=== PATIENT | female | born 1940 | race Caucasian/White ===

== ENCOUNTER 2016-07-05 16:20 | Inpatient (IN) | payer MEDICARE ==
[2016-07-05 16:52] VITALS: BMI 31.8
--- NOTE | 2016-07-05 16:53 | CT ---
PROCEDURE: CT HEAD WITHOUT CONTRAST. HISTORY: Code Stroke COMPARISON: Comparison is made to the previous study dated 07/14/2015 TECHNIQUE: Axial computed tomography images were obtained through the head/brain without intravenous contrast. Radiation dose: Total exam DLP = 843.71 mGy-cm. FINDINGS: HEMORRHAGE: No intracranial hemorrhage. BRAIN: No mass effect or edema. Mild atrophy and moderate to extensive white matter changes are again seen. Chronic lacunar infarct is again noted at the left thalamus. VENTRICLES: Unremarkable. No hydrocephalus. CALVARIUM: Unremarkable. PARANASAL SINUSES: Unremarkable as visualized. No significant inflammatory changes. MASTOID AIR CELLS: Unremarkable as visualized. No inflammatory changes. OTHER FINDINGS: None. IMPRESSION: No evidence of acute intracranial hemorrhage. No significant interval change compared to the previous study 07/14/2015.
[2016-07-05 17:07] LABS: BASO # 0.1 K/uL (0.0-0.2); BASO % 0.6 % (0.0-2.0); EOS # 0.1 K/uL (0.0-0.7); HEMATOCRIT 37.3 % (34.0-47.0); LYMPH # 1.8 K/uL (1.0-4.3); LYMPH % 18.8 % (20.0-40.0); MEAN CELL VOLUME 85.4 fL (81.0-99.0); MEAN CORPUSCULAR HEMOGLOBIN 29.3 pg (27.0-31.0); MEAN CORPUSCULAR HGB CONC 34.3 g/dL (33.0-37.0); MEAN PLATELET VOLUME 9.3 fL (7.2-11.7); MONO # 0.8 K/uL (0.0-0.8); MONO % 8.7 % (0.0-10.0); RED CELL DISTRIBUTION WIDTH 15.2 % (11.5-14.5); WHITE BLOOD COUNT 9.5 K/uL (4.8-10.8)
--- NOTE | 2016-07-05 17:10 | RAD ---
HISTORY: code stroke COMPARISON: 07/14/2015 FINDINGS: LUNGS: Lung markings are accentuated. PLEURA: No significant pleural effusion identified, no pneumothorax apparent. CARDIOVASCULAR: There is mild cardiomegaly. Atherosclerotic aortic arch calcifications are present. OSSEOUS STRUCTURES: No significant abnormalities. VISUALIZED UPPER ABDOMEN: Normal. OTHER FINDINGS: None. IMPRESSION: Mild cardiomegaly and pulmonary venous congestion.
[2016-07-05 17:14] LABS: CHLORIDE 99 mmol/L (98-107)
[2016-07-05 17:15] LABS: POTASSIUM 4.1 mmol/L (3.6-5.2); SODIUM 140 mmol/L (132-148)
[2016-07-05 17:17] LABS: ALB/GLOB RATIO 1.5 (1.0-2.1); CARBON DIOXIDE 28 mmol/L (22-30); CHOLESTEROL 132 mg/dL (0-199); GFR AFRICAN-AMERICAN > 60
[2016-07-05 17:18] LABS: ALKALINE PHOSPHATASE 97 U/L (38-126); ALT/SGPT 32 U/L (9-52); AST/SGOT 20 U/L (14-36); BILIRUBIN,TOTAL 1.1 mg/dL (0.2-1.3); BLOOD UREA NITROGEN 15 mg/dL (7-17); CALCIUM 8.8 mg/dl (8.6-10.4); GLUCOSE,RANDOM 106 mg/dL (65-105)
[2016-07-05 17:21] LABS: INR 1.1
[2016-07-05 17:26] LABS: RBC URINE 1 /hpf (0-3); URINE BILIRUBIN NEGATIVE (NEGATIVE); URINE COLOR Straw (YELLOW); URINE GLUCOSE (UA) NORMAL (Normal); URINE KETONE NEGATIVE (NEGATIVE); URINE LEUKOCYTE ESTERASE NEG Leu/uL (Negative); URINE PROTEIN NEGATIVE (NEGATIVE); URINE UROBILINOGEN NORMAL mg/dL (0.2-1.0); WBC URINE < 1 /hpf (0-5)
[2016-07-05 17:33] LABS: URINE BLOOD NEGATIVE (NEGATIVE)
--- NOTE | 2016-07-05 18:19 | C.PDOC ---
History Of Present Illness 75 y/o female presents to the ED with altered mental status. History per family. Pt last seen well at 1500. Pt was then found on floor unable to speak or walk at 1545. History recent cardiac stent, HTN and COPD. Pt has been well the last few days. Time Seen by Provider: 07/05/16 16:34 Chief Complaint (Nursing): Altered Mental Status History Per: Family History/Exam Limitations: Clinical Condition Onset/Duration Of Symptoms: Hrs Onset Of Symptoms: <3 Hours Current Symptoms Are (Timing): Still Present Usual Baseline: Alert Oriented, Ambulatory Recent travel outside of the [place]: No Past Medical History Reviewed: Historical Data, Nursing Documentation, Vital Signs Vital Signs: Last Vital Signs Temp Pulse 68 07/05/16 18:19 Resp 17 07/05/16 18:19 BP 200/88 H 07/05/16 18:19 Pulse Ox 97 07/05/16 20:23 - Medical History PMH: Arthritis, Asthma, CAD, HTN, TIA Surgical History: Coronary Stent Family History: States: Unknown Family Hx - Social History Hx Alcohol Use: No Hx Substance Use: No Review Of Systems Review Of Systems: ROS cannot be obtained secondary to pt's inabilty to answer questions. Neurological: Positive for: Altered Mental Status Physical Exam - Physical Exam Appears: Non-toxic, In Acute Distress Skin: Warm, Dry, No Rash Head: Atraumatic, Normacephalic Nose: Normal Oral Mucosa: Moist Neck: Normal ROM, Supple Chest: Symmetrical Cardiovascular: Rhythm Regular, No Murmur Respiratory: Normal Breath Sounds, No Rales, No Rhonchi, No Wheezing Gastrointestinal/Abdominal: Soft, No Tenderness Extremity: Normal ROM, No Pedal Edema Neurological/Psych: Other (see NIH) ED Course And Treatment - Laboratory Results Result Diagrams: 07/05/16 17:02 07/05/16 17:02 ECG: Interpreted By Me ECG Rhythm: Sinus Rhythm ECG Interpretation: No Acute Changes Interpretation Of ECG: LVH, Rate From EC O2 Sat by Pulse Oximetry: 97 (on room air) Pulse Ox Interpretation: Normal - Radiology CXR: Interpreted by Me CXR Interpretation: Yes: No Acute Disease - CT Scan/US CT head Other Rad Studies (CT/US): Read By Radiologist, Radiology Report Reviewed CT/US Interpretation: Accession No. : [id number]. Patient Name / ID : CATHLEEN PAINTING / [id number]. Exam Date : 07/05/2016 16:45:07 ( Approved ). Study Comment : Sex / Age : F / 75Y. Creator : Jorge Alberto Shankar. Dictator : Jorge Alberto Shankar. Auto Emissions Technician : Director Sports : Jorge Alberto Shankar. Approver2 : Report Date : 07/05/2016 16:51:54. My Comment : . PROCEDURE: CT HEAD WITHOUT CONTRAST. HISTORY: Code Stroke. COMPARISON: Comparison is made to the previous study dated 07/14/2015. TECHNIQUE: Axial computed tomography images were obtained through the head/brain without intravenous contrast. Radiation dose: Total exam DLP = 843.71 mGy-cm. FINDINGS: HEMORRHAGE: No intracranial hemorrhage. BRAIN: No mass effect or edema. Mild atrophy and moderate to extensive white matter changes are again seen. Chronic lacunar infarct is again noted at the left thalamus. VENTRICLES: Unremarkable. No hydrocephalus. CALVARIUM: Unremarkable. PARANASAL SINUSES: Unremarkable as visualized. No significant inflammatory changes. MASTOID AIR CELLS: Unremarkable as visualized. No inflammatory changes. OTHER FINDINGS: None. IMPRESSION: No evidence of acute intracranial hemorrhage. No significant interval change compared to the previous study 07/14/2015. MRI brain Other Rad Studies (CT/US): Read By Radiologist, Radiology Report Reviewed CT/US Interpretation: Accession No. : [id number]. Patient Name / ID : CATHLEEN PAINTING / [id number]. Exam Date : 07/05/2016 18:36:00 ( Approved ). Study Comment : Sex / Age : F / 75Y. Creator : Cruz Rahman MD. Dictator : Cruz Rahman MD. Auto Emissions Technician : Director Sports : Cruz Rahman MD. Approver2 : Report Date : 07/05/2016 18:57:14. My Comment : . PROCEDURE: MRI BRAIN WITHOUT CONTRAST. HISTORY: r/o CVA - AMS right sided weakness. COMPARISON: None. TECHNIQUE: Multiplanar, multisequence MR images of the brain were obtained without intravenous contrast enhancement. FINDINGS: HEMORRHAGE: None. DWI: No evidence of an acute or early subacute infarction. BRAIN PARENCHYMA: No mass effect or edema. Severe chronic microvascular changes are seen in the periventricular white matter. There is a chronic lacunar infarct in the left thalamus. VENTRICLES: Unremarkable. No hydrocephalus. CRANIUM: Unremarkable. ORBITS: Grossly unremarkable. PARANASAL SINUSES/MASTOIDS: Clear. VASCULAR SYSTEM: Skull base flow voids intact. OTHER FINDINGS: None. IMPRESSION: No acute intracranial findings Progress Note: Code Stroke Called Critical Care Time - Critical Care Note Total Time (in mins): 35 Documented critical care: time excludes all time spent performing seperately billable procedures. NIHSS Stroke Scale - Date/Time Evaluation Performed Date Performed: 07/05/16 Time Performed: 16:00 - How Severe is the Stoke Level of Consciousness: 1=Drowsy LOC to Questions: 2=Neither correct LOC to commands: 2=Neither correct Best Gaze: 0=Normal Visual: 0=No visual loss Facial: 1=Minor asymmetry Motor Arm - Left: 2=Falls before 10 sec Motor Arm - Right: 3=No effort against gravity (falls immediately) Motor Leg - Left: 2=Falls before 5 sec Motor Leg - Right: 4=No movement Limb Ataxia: 2=Present both Sensory: 0=Normal Best Language: 3=Mute Dysarthia: 2=Severe, near unintelligible or worse Extinction & Inattention (Neglect): 1=Partial neglect (mild judi-attention) Score: 25 Severity Of Stroke: 21-42= Severe Stroke rTPA Inclusion/Exclusion - Refusal of Treatment Patient Refused Treatment: No - Inclusion Criteria for Altepase Patient is 18 years or Older: Yes Clinical DX Ischemic Stroke Cause Neurological Deficit: Yes Time of Onset Established Less Than 270 Mins Before TX Begin: Yes Risk/Benefit Discussed With Patient/Family Member Present: No - Warning to TPA With Conditions Condition: Rapid Improvement (Pt now moving right side, now knows family) Medical Decision Making Medical Decision Making: Plan: labs, CT head, EKG, CXR, MRI brain, ativan, IV fluids, Ua CT no acute bleed Family at bedside reports pt is improving, now recognizing them, has moved the right side Test results and plan discussed with family Case discussed with dr See, in view of the improvement / high nih score TPA not indicated. MRI ordered - Case discussed with and admitted by dr Franci Burns covering dr Wilver Burns Pt accepted to ICU by dr Garcia Disposition - Disposition Disposition: HOSPITALIZED Disposition Time: 18:00 Condition: SERIOUS - Clinical Impression Clinical Impression: CVA (cerebral vascular accident) - Scribe Statement The provider has reviewed the documentation as recorded by the Scribe Billy Chowdhury Provider Attestation: All medical record entries made by the Scribe were at my direction and personally dictated by me. I have reviewed the chart and agree that the record accurately reflects my personal performance of the history, physical exam, medical decision making, and the department course for this patient. I have also personally directed, reviewed, and agree with the discharge instructions and disposition. Decision To Admit - Pt Status Changed To: Hospital Disposition Of: Inpatient - Admit Certification Admit to Inpatient:: After my assessment, the patient will require hospitalization for at least two midnights. This is because of the severity of symptoms shown, intensity of services needed, and/or the medical risk in this patient being treated as an outpatient. - InPatient: Physician Admission Certification:: see note - . Bed Request Type: ICU Admitting Physician: Acacia Burns Patient Diagnosis: CVA (cerebral vascular accident)
--- NOTE | 2016-07-05 18:58 | MRI ---
PROCEDURE: MRI BRAIN WITHOUT CONTRAST HISTORY: r/o CVA - AMS right sided weakness COMPARISON: None. TECHNIQUE: Multiplanar, multisequence MR images of the brain were obtained without intravenous contrast enhancement. FINDINGS: HEMORRHAGE: None DWI: No evidence of an acute or early subacute infarction. BRAIN PARENCHYMA: No mass effect or edema. Severe chronic microvascular changes are seen in the periventricular white matter. There is a chronic lacunar infarct in the left thalamus VENTRICLES: Unremarkable. No hydrocephalus. CRANIUM: Unremarkable. ORBITS: Grossly unremarkable. PARANASAL SINUSES/MASTOIDS: Clear VASCULAR SYSTEM: Skull base flow voids intact. OTHER FINDINGS: None. IMPRESSION: No acute intracranial findings
[2016-07-05] MEDS ORDERED: Albuterol 0.042% Inhal Sol (1.25 mg/3 mL) UD INH PRN (19:54)
[2016-07-05] MEDS ORDERED: MethylPREDNISolone 40 mg Vial IVP ONE (20:00)
--- NOTE | 2016-07-05 20:04 | CP.PCM.CON ---
History of Present Illness - History of Present Illness History of Present Illness: 75 YOF with h/o heavy smoking since she was 11 year old and h/o CAD and HTN, found on the floor at home and was unable to talk. She was seen by her daughter 5 minutes earlier and she was fine. Pt was unable to get up initially but later was able to stand up and walked with support but still not able to talk. No CP, she was awake, she was brought to ER, and was evaluated by Neurologist and apparently had no focal signs while in ER and her speech was also improving, so deemed not a candidate for TPA. Now I;m seeing the pt at 8 pm in ICU and the event happened at 3 pm. Pt is awake, alert, able to talk but not clearly. There is no facial droop but now has slight weakness of right arm. She also has wheezing and high BP 190/70 Review of Systems - Review of Systems Systems not reviewed;Unavailable: Unstable Vital Signs - Constitutional Constitutional: As Per HPI - EENT Eyes: As Per HPI Nose/Mouth/Throat: As Per HPI - Breasts Breasts: As Per HPI - Cardiovascular Cardiovascular: As Per HPI - Respiratory Respiratory: Wheezing - Gastrointestinal Gastrointestinal: As Per HPI Past Patient History - Past Medical History & Family History Past Medical History?: Yes - Past Social History Smoking Status: Heavy Smoker > 10 Cigarettes Daily - CARDIAC Hx Hypertension: Yes - PULMONARY Hx Asthma: Yes - NEUROLOGICAL Hx Transient Ischemic Attacks (TIA): Yes - HEENT Hx HEENT Problems: Yes Hx Cataracts: Yes (both eyes) - RENAL Hx Chronic Kidney Disease: No - ENDOCRINE/METABOLIC Hx Endocrine Disorders: Yes Hx Diabetes Mellitus Type 2: Yes - HEMATOLOGICAL/ONCOLOGICAL Hx Blood Disorders: No - INTEGUMENTARY Hx Dermatological Problems: No - MUSCULOSKELETAL/RHEUMATOLOGICAL Hx Arthritis: Yes - GASTROINTESTINAL Hx Gastrointestinal Disorders: Yes Hx Constipation: Yes - GENITOURINARY/GYNECOLOGICAL Hx Genitourinary Disorders: No - PSYCHIATRIC Hx Substance Use: No - SURGICAL HISTORY Hx Coronary Stent: Yes - ANESTHESIA Hx Anesthesia: Yes Hx Anesthesia Reactions: No Hx Malignant Hyperthermia: No Meds Allergies/Adverse Reactions: Allergies Allergy/AdvReac Type Severity Reaction Status Date / Time No Known Allergies Allergy Verified 07/14/15 14:51 - Medications Medications: Current Medications Albuterol Sulfate (Albuterol 0.042% Inhal Jennifer (1.25mg/3ml) Ud) 1.25 mg INH RQ4 PRN PRN Reason: Wheezing Hydralazine HCl (Apresoline) 10 mg IVP Q4H PRN PRN Reason: Systolic Blood Pressure Methylprednisolone (Solu-Medrol) 40 mg IVP ONCE ONE Stop: 07/05/16 20:01 Physical Exam - Head Exam Head Exam: ATRAUMATIC - Eye Exam Eye Exam: Normal appearance - Neck Exam Neck exam: Positive for: Normal Inspection - Respiratory Exam Respiratory Exam: NORMAL BREATHING PATTERN - Cardiovascular Exam Cardiovascular Exam: REGULAR RHYTHM - Exam Exam: NORMAL INSPECTION - Extremities Exam Extremities exam: Positive for: normal inspection - Neurological Exam Neurological exam: Alert, CN II-XII Intact, Motor Sensory Deficit - Expanded Neurological Exam Expanded Neuro motor strength exam: Left Upper Extremity: 5, Right Upper Extremity: 4, Left Lower Extremity: 5, Right Lower Extremity: 5 Results - Vital Signs Recent Vital Signs: Last Vital Signs Temp Pulse 68 07/05/16 18:19 Resp 17 07/05/16 18:19 BP 200/88 H 07/05/16 18:19 Pulse Ox 97 07/05/16 19:36 - Labs Result Diagrams: 07/05/16 17:02 07/05/16 17:02 Assessment & Plan - Assessment and Plan (Free Text) Assessment: Acute ischemic CVA: MRI head was negative Accelerated HTN: due to stroke COPD exacerbation CAD: h/o stent placement 2006 Plan: was evaluated by neurologist, was not a candidate for TPA No need to control< 190 at the moment, will bring it down gradually, PRN hydralazine IV, will start PO meds if passed swallow evaluation Methyprednison 40 mg IV now and q 6 hour Albuterol inhalor q4 hour PRN DVT propylaxis, lovenox 40 mg s/q daily neurology f/u
--- NOTE | 2016-07-05 20:34 | CP.PCM.HP ---
Past Patient History - Past Medical History & Family History Past Medical History?: Yes - Past Social History Smoking Status: Heavy Smoker > 10 Cigarettes Daily - CARDIAC Hx Hypertension: Yes - PULMONARY Hx Asthma: Yes - NEUROLOGICAL Hx Transient Ischemic Attacks (TIA): Yes - HEENT Hx HEENT Problems: Yes Hx Cataracts: Yes (both eyes) - RENAL Hx Chronic Kidney Disease: No - ENDOCRINE/METABOLIC Hx Endocrine Disorders: Yes Hx Diabetes Mellitus Type 2: Yes - HEMATOLOGICAL/ONCOLOGICAL Hx Blood Disorders: No - INTEGUMENTARY Hx Dermatological Problems: No - MUSCULOSKELETAL/RHEUMATOLOGICAL Hx Arthritis: Yes - GASTROINTESTINAL Hx Gastrointestinal Disorders: Yes Hx Constipation: Yes - GENITOURINARY/GYNECOLOGICAL Hx Genitourinary Disorders: No - PSYCHIATRIC Hx Substance Use: No - SURGICAL HISTORY Hx Coronary Stent: Yes - ANESTHESIA Hx Anesthesia: Yes Hx Anesthesia Reactions: No Hx Malignant Hyperthermia: No Meds Allergies/Adverse Reactions: Allergies Allergy/AdvReac Type Severity Reaction Status Date / Time No Known Allergies Allergy Verified 07/14/15 14:51 Results - Vital Signs Recent Vital Signs: Last Vital Signs Temp Pulse 68 07/05/16 18:19 Resp 17 07/05/16 18:19 BP 200/88 H 07/05/16 18:19 Pulse Ox 97 07/05/16 20:28 - Labs Result Diagrams: 07/05/16 17:02 07/05/16 17:02
[2016-07-05 22:06] LABS: FREE T4 1.37 ng/dL (0.78-2.19)
[2016-07-05 22:20] LABS: THYROID STIMULATING HORMONE 1.23 mIU/L (0.46-4.68)
[2016-07-06 06:19] LABS: BASO % 0.1 % (0.0-2.0); HEMATOCRIT 37.2 % (34.0-47.0); LYMPH # 0.7 K/uL (1.0-4.3); LYMPH % 6.5 % (20.0-40.0); MEAN CELL VOLUME 85.5 fL (81.0-99.0); MEAN CORPUSCULAR HEMOGLOBIN 29.4 pg (27.0-31.0); MEAN CORPUSCULAR HGB CONC 34.4 g/dL (33.0-37.0); MEAN PLATELET VOLUME 9.7 fL (7.2-11.7); MONO # 0.2 K/uL (0.0-0.8); MONO % 1.9 % (0.0-10.0); PLATELET COUNT 213 K/uL (130-400); RED CELL DISTRIBUTION WIDTH 15.2 % (11.5-14.5); WHITE BLOOD COUNT 10.5 K/uL (4.8-10.8)
[2016-07-06 06:30] LABS: CHLORIDE 99 mmol/L (98-107); POTASSIUM 3.8 mmol/L (3.6-5.2); SODIUM 140 mmol/L (132-148)
[2016-07-06 06:32] LABS: ALB/GLOB RATIO 1.3 (1.0-2.1); ALKALINE PHOSPHATASE 86 U/L (38-126); ALT/SGPT 24 U/L (9-52); AST/SGOT 16 U/L (14-36); BILIRUBIN,TOTAL 1.1 mg/dL (0.2-1.3); BLOOD UREA NITROGEN 13 mg/dL (7-17); CARBON DIOXIDE 24 mmol/L (22-30); GFR AFRICAN-AMERICAN > 60; GLUCOSE,RANDOM 153 mg/dL (65-105); PHOSPHOROUS 3.7 mg/dL (2.5-4.5); TOTAL PROTEIN 6.7 g/dL (6.3-8.3)
[2016-07-06 06:33] LABS: CALCIUM 8.5 mg/dl (8.6-10.4); MAGNESIUM 1.8 mg/dL (1.6-2.3)
[2016-07-06 06:35] LABS: INR 1.1
[2016-07-06 09:04] LABS: LARGE PLATELETS PRESENT; NEUTROPHIL 89 % (50-75); REACTIVE LYMPHOCYTES 1 % (0-0); TOTAL CELLS COUNTED 100
[2016-07-06 09:22] LABS: ERYTHROCYTE SEDIMENTATION RATE 43 mm/hr (0-20)
[2016-07-06] MEDS ORDERED: Pantoprazole 40 mg EC Tab PO SCH (10:00)
--- NOTE | 2016-07-06 11:33 | CON ---
DATE: 07/06/2016 ROOM: ICU, bed 16. REASON FOR THE CONSULTATION: Right-sided weakness. CHIEF COMPLAINT: The patient was brought to [facility] by her daughter with a history of unable to get her up. This episode lasted for a few minutes and after that, she got up on her own and she had a problem with speech impairment. At the time the patient was brought into the [facility], she had a right-sided weakness. The symptoms were improved. From neurological point of view, I was called in to evaluate her for further management. HISTORY OF PRESENTING ILLNESS: The patient is a 75-year-old, right-handed, female brought into [facility] with a history of daughter witnessed that she could not able to get out of her bed. A few minutes later, she could able to get up. However, she could not able to walk. At that time in the ER, she was found to have a right-sided weakness with speech impairment. As per the ER physician, her symptoms got somewhat improved the time of admission. Considering that presentation, patient was out of tPA window treatment. The patient did have a CT of the head and MRI of the brain also done at the same time. PAST MEDICAL HISTORY: COPD, hypertension, history of TIA and coronary artery disease. She had a coronary artery stent placement. REVIEW OF SYSTEMS: As per H and P. PERSONAL HISTORY: Denies smoking or alcohol use. MEDICATIONS: At home, hydralazine, lorazepam, methylprednisolone. PHYSICAL EXAMINATION: VITAL SIGNS: Blood pressure 148/64, mean arterial pressure 87, respiratory rate 16, temperature afebrile. NECK: Supple. No carotid bruit. HEART SOUNDS: Tachycardia. EXTREMITIES: Right leg externally rotated. NEUROLOGIC EXAMINATION: MENTAL STATUS: She had a visual fixation on her left side. Right side still denying to look at me when I stand on the right side. Speech globally aphasic. CRANIAL NERVES: Decreased visual threat on right side. Pupils reactive to light. Extraocular movement, roving conjugate gaze. Facial asymmetry noted presenting as flattening of the nasolabial fold. Hearing seems to be intact. She could able to copy the sign. Gag, inability to evaluate. MOTOR: She could move her left side. Right side is 0/5. Deep tendon reflexes absent. Plantars are upgoing on her right side; left side was downgoing. SENSORY: Responds to pain symmetrically on both sides. GAIT AND COORDINATION: Deferred at this time. CONCLUSION: Upon reviewing her history and neurological examination, the patient is presenting with left hemispheric dysfunction manifesting as right homonymous hemianopsia, right hemiplegia, globally aphasia. All suggestive of dominant hemispheric dysfunction. This is probably ischemic versus embolic phenomena. However, other possible causes could be postictal phase. WORKUP: CT of the head, no acute pathology. MRI of the brain, reviewed by me, no acute pathology except old left thalamic infarct and periventricular ischemic changes consistent with small vessel disease. EKG, normal sinus rhythm. BLOOD WORKUP: WBCs 10, hemoglobin 12.8, hematocrit 37.2, . PT 12.6, INR 1.1, PTT 28. Sodium 140, potassium 3.8, chloride 99, bicarbonate 24, BUN 13, creatinine 0.6, GFR more than 60, glucose 153. Hemoglobin A1c 6.4. Triglyceride 137, cholesterol 125, LDL 55, HDL 44. TSH 1.23. Prolactin 52.3. RECOMMENDATIONS: 1. Repeat CT of the head today to rule out any other further ischemic process. 2. EEG to rule out paroxysmal activities or focal slowing. 3. Continue antiplatelets with RODNEY inhibitors. The patient should be kept DVT prophylaxis. The patient's condition has been discussed with the resident. The patient will be followed closely with you. Fan See MD cc: [id number] TT: 07/06/2016 11:32:38 Confirmation # [id number] Dictation # [id number] [id number]
[2016-07-06] MEDS ORDERED: Lactated Ringer's 1,000 ML IV SCH (12:30)
[2016-07-06] MEDS: Metoprolol 1 mg/ml Inj IVP SCH ×2 (12:49→18:06)
--- NOTE | 2016-07-06 15:14 | VASCLAB ---
PROCEDURE: HISTORY: STENOSIS COMPARISON: None available. TECHNIQUE: Grayscale and duplex Doppler evaluation of the cervical carotid and vertebral arteries were performed. The common carotid, carotid bifurcations and cervical Internal Carotid Artery (ICA) and proximal External Carotid Artery (ECA) were evaluated. The vertebral arteries were evaluated for gross patency and flow direction. Report prepared by UNIQUE Bullock FINDINGS: RIGHT CAROTID ARTERIES: 1. Common Carotid Artery: No significant focal plaque formation of the right common carotid artery. Maximum Peak Systolic velocity: 98 cm/sec: End-diastolic velocity 17 cm/sec. 2. Carotid Bifurcation: Calcific plaque formation. Maximum Peak Systolic velocity: 78 cm/sec: End-diastolic velocity 14 cm/sec. 3. Internal Carotid Artery: Plaque description: Calcific 3.1. Proximal Segment: Peak systolic velocity 151 cm/sec: End-diastolic velocity 21 cm/sec - % stenosis 50-60% 3.2. Middle Segment: Peak systolic velocity 106 cm/sec: End-diastolic velocity 12 cm/sec - % stenosis 0-15% 3.3. Distal Segment: Unable to obtain 4. External Carotid Artery: Calcific plaque formation. Peak systolic velocity 159 cm/sec 5. ICA/CCA Ratio: 1.5 LEFT CAROTID ARTERIES: 1. Common Carotid Artery: No significant focal plaque formation of the left common carotid artery. Maximum Peak Systolic velocity: 85 cm/sec: End-diastolic velocity 10 cm/sec. 2. Carotid Bifurcation: Calcific plaque formation. Maximum Peak Systolic velocity: 88 cm/sec: End-diastolic velocity 11 cm/sec. 3. Internal Carotid Artery: Plaque description: Calcific 3.1. Proximal Segment: Peak systolic velocity 87 cm/sec: End-diastolic velocity 22 cm/sec - % stenosis 0-15% 3.2. Middle Segment: Peak systolic velocity 108 cm/sec: End-diastolic velocity 33 cm/sec - % stenosis 0-15% 3.3. Distal Segment: Peak systolic velocity 95 cm/sec: End-diastolic velocity 25 cm/sec - % stenosis 0-15% 4. External Carotid Artery: Calcific plaque formation. Peak systolic velocity 104 cm/sec 5. ICA/CCA Ratio: 1.4 VERTEBRAL ARTERIES: 1. Right Vertebral Artery: unable to visualize 2. Left Vertebral Artery: unable to visualize OTHER FINDINGS: 1. Right Brachial Blood pressure: 150 mmHg. 2. Left Brachial Blood pressure: 160 mmHg. IMPRESSION: RIGHT: Elevated velocity at the right proximal ICA, suggesting 50-60% stenosis. High velocity noted of the right proximal ECA. LEFT: Duplex scan does not suggest hemodynamically significant stenosis of the left extracranial carotid arteries. Technically very difficult exam due to patient constant movement and head position.
--- NOTE | 2016-07-06 16:14 | CP.CCUPN ---
<Sandra Magdaleno - Last Filed: 07/06/16 17:09> CCU Subjective - Physician Review Subjective (Free Text): 07/06/16 16:12 Patient seen and examined at bedside. Patient is globally aphasic speech. She actively raises her left arm and leg and is able to sustain against gravity. Left side 0/5 strength. Patient will not look to the right side. Responsive to pain bilaterally and symmetrically. Follows commands. Critical Care Time Spent (in minutes): 90 CCU Objective - Vital Signs / Intake & Output Vital Signs (Last 4 hours): Vital Signs Pulse Resp BP Pulse Ox 07/06/16 15:00 62 20 164/57 H 98 07/06/16 14:00 58 L 20 151/53 H 99 07/06/16 13:00 60 19 162/63 H 99 Intake and Output (Last 8hrs): Intake & Output 07/06/16 07/06/16 07/06/16 06:59 14:59 22:59 Intake Total 100 400 100 Output Total 750 305 35 Balance -650 95 65 Weight 176 lb 12.8 oz Intake: Intake, IV Amount 400 100 Left Hand 400 Lt AC #20 100 Oral 100 Output: Urine 750 305 35 Urethral (Almodovar) 750 305 35 - Physical Exam Head: Positive for: Atraumatic, Normocephalic Pupils: Positive for: PERRL Extroacular Muscles: Positive for: Other (gaze only to left side ) Conjunctiva: Positive for: Normal Mouth: Positive for: Moist Mucous Membranes Neck: Negative for: Bruit Respiratory/Chest: Positive for: Wheezes. Negative for: Respiratory Distress, Rales, Rhonchi Cardiovascular: Positive for: Normal S1, S2. Negative for: Tachycardic Abdomen: Positive for: Normal Bowel Sounds. Negative for: Tenderness, Distention Upper Extremity: Positive for: Normal Inspection, Other Lower Extremity: Negative for: Edema Neurological: Positive for: Other (Gaze to left side, corneal reflex intact, 5/ 5 strength to LUE and LLE, 0/5 stength to RUE and RLE, pupils reactive to light ) Psychiatric: Positive for: Alert - Medications Active Medications: Active Medications Generic Name Dose Route Start Last Admin Trade Name Freq PRN Reason Stop Dose Admin Albuterol Sulfate 1.25 mg 07/05/16 19:54 07/05/16 20:07 Albuterol 0.042% Inhal Jennifer (1.25mg/3ml) Ud INH 1.25 mg RQ4 PRN Administration Wheezing Aspirin 300 mg 07/06/16 12:30 07/06/16 13:05 Aspirin Supp ND 300 mg DAILY YASMIN Administration Hydralazine HCl 10 mg 07/05/16 19:39 07/06/16 01:53 Apresoline IVP 10 mg Q4H PRN Administration Systolic Blood Pressure Lactated Ringer's 1,000 mls @ 100 mls/hr 07/06/16 12:30 07/06/16 12:47 Lactated Ringer's IV 100 mls/hr .Q10H YASMIN Administration Metoprolol Tartrate 2.5 mg 07/06/16 12:15 07/06/16 12:49 Lopressor IVP 2.5 mg Q6H YASMIN Administration Pantoprazole Sodium 40 mg 07/07/16 10:00 Protonix Inj IVP DAILY YASMIN Rosuvastatin Calcium 20 mg 07/05/16 22:00 07/05/16 22:10 Crestor PO 20 mg HS YASMIN Administration - Patient Studies Lab Studies: Microbiology Studies 07/05/16 19:15 MRSA Culture (Admit) - Final Nose MRSA NOT DETECTED Lab Studies 07/06/16 07/06/16 07/06/16 Range/Units 12:01 06:11 06:10 WBC 10.5 (4.8-10.8) K/uL RBC 4.35 (3.80-5.20) Mil/uL Hgb 12.8 (11.0-16.0) g/dL Hct 37.2 (34.0-47.0) % MCV 85.5 (81.0-99.0) fL MCH 29.4 (27.0-31.0) pg MCHC 34.4 (33.0-37.0) g/dL RDW 15.2 H (11.5-14.5) % Plt Count 213 (130-400) K/uL MPV 9.7 (7.2-11.7) fL Neut % (Auto) 91.5 H (50.0-75.0) % Lymph % (Auto) 6.5 L (20.0-40.0) % [place] % (Auto) 1.9 (0.0-10.0) % Eos % (Auto) 0.0 (0.0-4.0) % Baso % (Auto) 0.1 (0.0-2.0) % Neut # 9.6 H (1.8-7.0) K/uL Lymph # 0.7 L (1.0-4.3) K/uL [place] # 0.2 (0.0-0.8) K/uL Eos # 0.0 (0.0-0.7) K/uL Baso # 0.0 (0.0-0.2) K/uL Neutrophils % (Manual) 89 H (50-75) % Lymphocytes % (Manual) 8 L (20-40) % Reactive Lymphs % 1 H (0-0) % Monocytes % (Manual) 2 (0-10) % Platelet Estimate Normal (NORMAL) Large Platelets Present RBC Morphology Normal ESR 43 H (0-20) mm/hr PT 12.6 H (9.7-12.2) SECONDS INR 1.1 APTT 28 (21-34) SECONDS Sodium 140 (132-148) mmol/L Potassium 3.8 (3.6-5.2) mmol/L Chloride 99 (98-107) mmol/L Carbon Dioxide 24 (22-30) mmol/L Anion Gap 20 (10-20) BUN 13 (7-17) mg/dL Creatinine 0.6 L (0.7-1.2) MG/DL Est GFR ( Amer) > 60 Est GFR (Non-Af Amer) > 60 POC Glucose (mg/dL) 118 H (65-110) mg/dL Random Glucose 153 H (65-105) mg/dL Calcium 8.5 L (8.6-10.4) mg/dl Phosphorus 3.7 (2.5-4.5) mg/dL Magnesium 1.8 (1.6-2.3) mg/dL Total Bilirubin 1.1 (0.2-1.3) mg/dL AST 16 (14-36) U/L ALT 24 (9-52) U/L Alkaline Phosphatase 86 (38-126) U/L Total Protein 6.7 (6.3-8.3) g/dL Albumin 3.8 (3.5-5.0) g/dL Globulin 2.9 (2.2-3.9) gm/dL Albumin/Globulin Ratio 1.3 (1.0-2.1) Triglycerides (0-149) mg/dL Cholesterol (0-199) mg/dL LDL Cholesterol Direct (0-129) mg/dL HDL Cholesterol (30-70) mg/dL Free T4 (0.78-2.19) ng/dL TSH 3rd Generation (0.46-4.68) mIU/L Prolactin (3.0-18.9) ng/mL 07/05/16 07/05/16 Range/Units 22:03 21:29 WBC (4.8-10.8) K/uL RBC (3.80-5.20) Mil/uL Hgb (11.0-16.0) g/dL Hct (34.0-47.0) % MCV (81.0-99.0) fL MCH (27.0-31.0) pg MCHC (33.0-37.0) g/dL RDW (11.5-14.5) % Plt Count (130-400) K/uL MPV (7.2-11.7) fL Neut % (Auto) (50.0-75.0) % Lymph % (Auto) (20.0-40.0) % [place] % (Auto) (0.0-10.0) % Eos % (Auto) (0.0-4.0) % Baso % (Auto) (0.0-2.0) % Neut # (1.8-7.0) K/uL Lymph # (1.0-4.3) K/uL [place] # (0.0-0.8) K/uL Eos # (0.0-0.7) K/uL Baso # (0.0-0.2) K/uL Neutrophils % (Manual) (50-75) % Lymphocytes % (Manual) (20-40) % Reactive Lymphs % (0-0) % Monocytes % (Manual) (0-10) % Platelet Estimate (NORMAL) Large Platelets RBC Morphology ESR (0-20) mm/hr PT (9.7-12.2) SECONDS INR APTT (21-34) SECONDS Sodium (132-148) mmol/L Potassium (3.6-5.2) mmol/L Chloride (98-107) mmol/L Carbon Dioxide (22-30) mmol/L Anion Gap (10-20) BUN (7-17) mg/dL Creatinine (0.7-1.2) MG/DL Est GFR ( Amer) Est GFR (Non-Af Amer) POC Glucose (mg/dL) 121 H (65-110) mg/dL Random Glucose (65-105) mg/dL Calcium (8.6-10.4) mg/dl Phosphorus (2.5-4.5) mg/dL Magnesium (1.6-2.3) mg/dL Total Bilirubin (0.2-1.3) mg/dL AST (14-36) U/L ALT (9-52) U/L Alkaline Phosphatase (38-126) U/L Total Protein (6.3-8.3) g/dL Albumin (3.5-5.0) g/dL Globulin (2.2-3.9) gm/dL Albumin/Globulin Ratio (1.0-2.1) Triglycerides 137 (0-149) mg/dL Cholesterol 125 (0-199) mg/dL LDL Cholesterol Direct 55 (0-129) mg/dL HDL Cholesterol 44 (30-70) mg/dL Free T4 1.37 (0.78-2.19) ng/dL TSH 3rd Generation 1.23 (0.46-4.68) mIU/L Prolactin 52.3 H (3.0-18.9) ng/mL Laboratory Results - last 24 hr 07/05/16 07/05/16 07/06/16 21:29 22:03 06:10 WBC RBC Hgb Hct MCV MCH MCHC RDW Plt Count MPV Neut % (Auto) Lymph % (Auto) [place] % (Auto) Eos % (Auto) Baso % (Auto) Neut # Lymph # [place] # Eos # Baso # Neutrophils % (Manual) Lymphocytes % (Manual) Reactive Lymphs % Monocytes % (Manual) Platelet Estimate Large Platelets RBC Morphology ESR PT INR APTT Sodium 140 Potassium 3.8 Chloride 99 Carbon Dioxide 24 Anion Gap 20 BUN 13 Creatinine 0.6 L Est GFR ( Amer) > 60 Est GFR (Non-Af Amer) > 60 POC Glucose (mg/dL) 121 H Random Glucose 153 H Calcium 8.5 L Phosphorus 3.7 Magnesium 1.8 Total Bilirubin 1.1 AST 16 ALT 24 Alkaline Phosphatase 86 Total Protein 6.7 Albumin 3.8 Globulin 2.9 Albumin/Globulin Ratio 1.3 Triglycerides 137 Cholesterol 125 LDL Cholesterol Direct 55 HDL Cholesterol 44 Free T4 1.37 TSH 3rd Generation 1.23 Prolactin 52.3 H 07/06/16 07/06/16 06:11 12:01 WBC 10.5 RBC 4.35 Hgb 12.8 Hct 37.2 MCV 85.5 MCH 29.4 MCHC 34.4 RDW 15.2 H Plt Count 213 MPV 9.7 Neut % (Auto) 91.5 H Lymph % (Auto) 6.5 L [place] % (Auto) 1.9 Eos % (Auto) 0.0 Baso % (Auto) 0.1 Neut # 9.6 H Lymph # 0.7 L [place] # 0.2 Eos # 0.0 Baso # 0.0 Neutrophils % (Manual) 89 H Lymphocytes % (Manual) 8 L Reactive Lymphs % 1 H Monocytes % (Manual) 2 Platelet Estimate Normal Large Platelets Present RBC Morphology Normal ESR 43 H PT 12.6 H INR 1.1 APTT 28 Sodium Potassium Chloride Carbon Dioxide Anion Gap BUN Creatinine Est GFR ( Amer) Est GFR (Non-Af Amer) POC Glucose (mg/dL) 118 H Random Glucose Calcium Phosphorus Magnesium Total Bilirubin AST ALT Alkaline Phosphatase Total Protein Albumin Globulin Albumin/Globulin Ratio Triglycerides Cholesterol LDL Cholesterol Direct HDL Cholesterol Free T4 TSH 3rd Generation Prolactin Fingerstick Blood Sugar Results: 121 Review of Systems - Review of Systems Review of Systems: ROS: not able to obtain due to patient condition Critical Care Progress Note - Extremities/Vascular Does the Patient have a Almodovar Catheter?: Yes Does the Patient need a Almodovar Catheter?: Yes Catheter Insertion Criteria: Need for accurate measurement of output in critically ill patient - Prophylaxis GI Prophylaxis GI: PPI - Prophylaxis DVT Prophylaxis DVT: SCDs - Nutrition Nutrition: Nutrition Category Date Time Status NPO Diet [DIET] Diets 07/06/16 Breakfast Active Assessment/Plan - Assessment and Plan (Free Text) Assessment: Pt is 75F with medical history of CAD s/p stent placement, COPD, and HTN who presented to the ED after being found on the floor and patient unable to talk. Daughter notes patient was able to talk within 5 minutes. When she was examined in the ICU at 8PM on 07/05/16, she had right arm weakness and difficulty speaking but awake and alert. Patient noted to not be a candidate for tPA by Neurologist , Dr. See. CT head w/o contrast and brain MRI were negative for acute ischemic /hemorrhagic stroke but noted chronic lacunar infarct. Patient for EEG. Plan: Neuro: Pt displays 0/0 strength to right upper and lower extremities, positive babinski on right, and global aphasia Prolactin elevated 52.3 f/u repeat Prolactin For EEG CT Head w/o contrast: negative for acute ischemia/hemorrhage. Chronic lacunar infarct noted. Brain MRI: Severe chronic microvascular changes seen in periventricular white matter. Chronic lacunar infarct of left thalamus. No acute intracranial findings. Carotid Doppler: Right: elevated velocity at R proximal ICA, suggesting 50-60% stenosis. High velocity noted of R proximal ECA. Left: no significant stenosis of L extracranial carotid arteries. CVS: History of CAD s/p stent placement ASA 300 mg ND Plavix 75 mg po daily - NG tube Crestor 20 mg po HS LR IV @100 Maintain systolic blood pressure between 150-180 mmHg History of hypertension Lopressor 2.5 mg IVP Q6H Hydralazine 10 mg IVP Q4H PRN Pulmonary: History of COPD Saturating well Albuterol Sulfate INH RQ4 GI: Swallow Eval - keep patient NPO NG tube placed Heme: H&H: 12.8/37.2 Platelets 213 Monitor Endo: Glucose 118 Maintain Euglycemia Nephro: BUN/CR: 13/0.6 Potassium and Magnesium - repleted Monitor electrolytes : almodovar catheter in place UA- negative Monitor urinary output Msk/Integument: Monitor for skin breakdown Turn q2h Prophylaxis: Protonix 40 mg IVP daily Lovenox 40 mg SC daily - Date & Time Date: 07/06/16 Time: 17:31 <Giovanna Taylor - Last Filed: 07/06/16 19:01> CCU Objective - Vital Signs / Intake & Output Vital Signs (Last 4 hours): Vital Signs Temp Pulse Resp BP Pulse Ox 07/06/16 18:00 58 L 20 161/56 H 98 07/06/16 17:00 60 20 164/56 H 97 07/06/16 16:00 98.9 F 59 L 20 150/56 L 98 07/06/16 15:00 62 20 164/57 H 98 Intake and Output (Last 8hrs): Intake & Output 03/02/1207/06/16 07/06/16 06:59 14:59 22:59 Intake Total 100 400 400 Output Total 750 305 125 Balance -650 95 275 Weight 176 lb 12.8 oz Intake: Intake, IV Amount 400 400 Left Hand 400 Lt AC #20 400 Oral 100 Output: Urine 750 305 125 Urethral (Almodovar) 750 305 125 - Medications Active Medications: Active Medications Generic Name Dose Route Start Last Admin Trade Name Freq PRN Reason Stop Dose Admin Albuterol Sulfate 1.25 mg 07/05/16 19:54 07/05/16 20:07 Albuterol 0.042% Inhal Jennifer (1.25mg/3ml) Ud INH 1.25 mg RQ4 PRN Administration Wheezing Aspirin 300 mg 07/06/16 12:30 07/06/16 13:05 Aspirin Supp ND 300 mg DAILY YASMIN Administration Clopidogrel Bisulfate 75 mg 07/07/16 10:00 Plavix PO DAILY YASMIN Enoxaparin Sodium 40 mg 07/07/16 10:00 Lovenox SC DAILY YASMIN Famotidine 20 mg 07/07/16 10:00 Pepcid PO BID YASMIN Hydralazine HCl 10 mg 07/05/16 19:39 07/06/16 01:53 Apresoline IVP 10 mg Q4H PRN Administration Systolic Blood Pressure Lactated Ringer's 1,000 mls @ 100 mls/hr 07/06/16 12:30 07/06/16 12:47 Lactated Ringer's IV 100 mls/hr .Q10H YASMIN Administration Metoprolol Tartrate 2.5 mg 07/06/16 12:15 07/06/16 18:06 Lopressor IVP Not Given Q6H YASMIN Rosuvastatin Calcium 20 mg 07/05/16 22:00 07/05/16 22:10 Crestor PO 20 mg HS YASMIN Administration - Patient Studies Lab Studies: Microbiology Studies 07/05/16 19:15 MRSA Culture (Admit) - Final Nose MRSA NOT DETECTED Lab Studies 07/06/16 07/06/16 07/06/16 Range/Units 17:35 16:35 12:01 WBC (4.8-10.8) K/uL RBC (3.80-5.20) Mil/uL Hgb (11.0-16.0) g/dL Hct (34.0-47.0) % MCV (81.0-99.0) fL MCH (27.0-31.0) pg MCHC (33.0-37.0) g/dL RDW (11.5-14.5) % Plt Count (130-400) K/uL MPV (7.2-11.7) fL Neut % (Auto) (50.0-75.0) % Lymph % (Auto) (20.0-40.0) % [place] % (Auto) (0.0-10.0) % Eos % (Auto) (0.0-4.0) % Baso % (Auto) (0.0-2.0) % Neut # (1.8-7.0) K/uL Lymph # (1.0-4.3) K/uL [place] # (0.0-0.8) K/uL Eos # (0.0-0.7) K/uL Baso # (0.0-0.2) K/uL Neutrophils % (Manual) (50-75) % Lymphocytes % (Manual) (20-40) % Reactive Lymphs % (0-0) % Monocytes % (Manual) (0-10) % Platelet Estimate (NORMAL) Large Platelets RBC Morphology ESR (0-20) mm/hr PT (9.7-12.2) SECONDS INR APTT (21-34) SECONDS Sodium (132-148) mmol/L Potassium (3.6-5.2) mmol/L Chloride (98-107) mmol/L Carbon Dioxide (22-30) mmol/L Anion Gap (10-20) BUN (7-17) mg/dL Creatinine (0.7-1.2) MG/DL Est GFR ( Amer) Est GFR (Non-Af Amer) POC Glucose (mg/dL) 102 118 H (65-110) mg/dL Random Glucose (65-105) mg/dL Calcium (8.6-10.4) mg/dl Phosphorus (2.5-4.5) mg/dL Magnesium (1.6-2.3) mg/dL Total Bilirubin (0.2-1.3) mg/dL AST (14-36) U/L ALT (9-52) U/L Alkaline Phosphatase (38-126) U/L Total Protein (6.3-8.3) g/dL Albumin (3.5-5.0) g/dL Globulin (2.2-3.9) gm/dL Albumin/Globulin Ratio (1.0-2.1) Triglycerides (0-149) mg/dL Cholesterol (0-199) mg/dL LDL Cholesterol Direct (0-129) mg/dL HDL Cholesterol (30-70) mg/dL Free T4 (0.78-2.19) ng/dL TSH 3rd Generation (0.46-4.68) mIU/L Prolactin 6.4 (3.0-18.9) ng/mL 07/06/16 07/06/16 07/05/16 Range/Units 06:11 06:10 22:03 WBC 10.5 (4.8-10.8) K/uL RBC 4.35 (3.80-5.20) Mil/uL Hgb 12.8 (11.0-16.0) g/dL Hct 37.2 (34.0-47.0) % MCV 85.5 (81.0-99.0) fL MCH 29.4 (27.0-31.0) pg MCHC 34.4 (33.0-37.0) g/dL RDW 15.2 H (11.5-14.5) % Plt Count 213 (130-400) K/uL MPV 9.7 (7.2-11.7) fL Neut % (Auto) 91.5 H (50.0-75.0) % Lymph % (Auto) 6.5 L (20.0-40.0) % [place] % (Auto) 1.9 (0.0-10.0) % Eos % (Auto) 0.0 (0.0-4.0) % Baso % (Auto) 0.1 (0.0-2.0) % Neut # 9.6 H (1.8-7.0) K/uL Lymph # 0.7 L (1.0-4.3) K/uL [place] # 0.2 (0.0-0.8) K/uL Eos # 0.0 (0.0-0.7) K/uL Baso # 0.0 (0.0-0.2) K/uL Neutrophils % (Manual) 89 H (50-75) % Lymphocytes % (Manual) 8 L (20-40) % Reactive Lymphs % 1 H (0-0) % Monocytes % (Manual) 2 (0-10) % Platelet Estimate Normal (NORMAL) Large Platelets Present RBC Morphology Normal ESR 43 H (0-20) mm/hr PT 12.6 H (9.7-12.2) SECONDS INR 1.1 APTT 28 (21-34) SECONDS Sodium 140 (132-148) mmol/L Potassium 3.8 (3.6-5.2) mmol/L Chloride 99 (98-107) mmol/L Carbon Dioxide 24 (22-30) mmol/L Anion Gap 20 (10-20) BUN 13 (7-17) mg/dL Creatinine 0.6 L (0.7-1.2) MG/DL Est GFR ( Amer) > 60 Est GFR (Non-Af Amer) > 60 POC Glucose (mg/dL) 121 H (65-110) mg/dL Random Glucose 153 H (65-105) mg/dL Calcium 8.5 L (8.6-10.4) mg/dl Phosphorus 3.7 (2.5-4.5) mg/dL Magnesium 1.8 (1.6-2.3) mg/dL Total Bilirubin 1.1 (0.2-1.3) mg/dL AST 16 (14-36) U/L ALT 24 (9-52) U/L Alkaline Phosphatase 86 (38-126) U/L Total Protein 6.7 (6.3-8.3) g/dL Albumin 3.8 (3.5-5.0) g/dL Globulin 2.9 (2.2-3.9) gm/dL Albumin/Globulin Ratio 1.3 (1.0-2.1) Triglycerides (0-149) mg/dL Cholesterol (0-199) mg/dL LDL Cholesterol Direct (0-129) mg/dL HDL Cholesterol (30-70) mg/dL Free T4 (0.78-2.19) ng/dL TSH 3rd Generation (0.46-4.68) mIU/L Prolactin (3.0-18.9) ng/mL 07/05/16 Range/Units 21:29 WBC (4.8-10.8) K/uL RBC (3.80-5.20) Mil/uL Hgb (11.0-16.0) g/dL Hct (34.0-47.0) % MCV (81.0-99.0) fL MCH (27.0-31.0) pg MCHC (33.0-37.0) g/dL RDW (11.5-14.5) % Plt Count (130-400) K/uL MPV (7.2-11.7) fL Neut % (Auto) (50.0-75.0) % Lymph % (Auto) (20.0-40.0) % [place] % (Auto) (0.0-10.0) % Eos % (Auto) (0.0-4.0) % Baso % (Auto) (0.0-2.0) % Neut # (1.8-7.0) K/uL Lymph # (1.0-4.3) K/uL [place] # (0.0-0.8) K/uL Eos # (0.0-0.7) K/uL Baso # (0.0-0.2) K/uL Neutrophils % (Manual) (50-75) % Lymphocytes % (Manual) (20-40) % Reactive Lymphs % (0-0) % Monocytes % (Manual) (0-10) % Platelet Estimate (NORMAL) Large Platelets RBC Morphology ESR (0-20) mm/hr PT (9.7-12.2) SECONDS INR APTT (21-34) SECONDS Sodium (132-148) mmol/L Potassium (3.6-5.2) mmol/L Chloride (98-107) mmol/L Carbon Dioxide (22-30) mmol/L Anion Gap (10-20) BUN (7-17) mg/dL Creatinine (0.7-1.2) MG/DL Est GFR ( Amer) Est GFR (Non-Af Amer) POC Glucose (mg/dL) (65-110) mg/dL Random Glucose (65-105) mg/dL Calcium (8.6-10.4) mg/dl Phosphorus (2.5-4.5) mg/dL Magnesium (1.6-2.3) mg/dL Total Bilirubin (0.2-1.3) mg/dL AST (14-36) U/L ALT (9-52) U/L Alkaline Phosphatase (38-126) U/L Total Protein (6.3-8.3) g/dL Albumin (3.5-5.0) g/dL Globulin (2.2-3.9) gm/dL Albumin/Globulin Ratio (1.0-2.1) Triglycerides 137 (0-149) mg/dL Cholesterol 125 (0-199) mg/dL LDL Cholesterol Direct 55 (0-129) mg/dL HDL Cholesterol 44 (30-70) mg/dL Free T4 1.37 (0.78-2.19) ng/dL TSH 3rd Generation 1.23 (0.46-4.68) mIU/L Prolactin 52.3 H (3.0-18.9) ng/mL Laboratory Results - last 24 hr 07/05/16 07/05/16 07/06/16 21:29 22:03 06:10 WBC RBC Hgb Hct MCV MCH MCHC RDW Plt Count MPV Neut % (Auto) Lymph % (Auto) [place] % (Auto) Eos % (Auto) Baso % (Auto) Neut # Lymph # [place] # Eos # Baso # Neutrophils % (Manual) Lymphocytes % (Manual) Reactive Lymphs % Monocytes % (Manual) Platelet Estimate Large Platelets RBC Morphology ESR PT INR APTT Sodium 140 Potassium 3.8 Chloride 99 Carbon Dioxide 24 Anion Gap 20 BUN 13 Creatinine 0.6 L Est GFR ( Amer) > 60 Est GFR (Non-Af Amer) > 60 POC Glucose (mg/dL) 121 H Random Glucose 153 H Calcium 8.5 L Phosphorus 3.7 Magnesium 1.8 Total Bilirubin 1.1 AST 16 ALT 24 Alkaline Phosphatase 86 Total Protein 6.7 Albumin 3.8 Globulin 2.9 Albumin/Globulin Ratio 1.3 Triglycerides 137 Cholesterol 125 LDL Cholesterol Direct 55 HDL Cholesterol 44 Free T4 1.37 TSH 3rd Generation 1.23 Prolactin 52.3 H 07/06/16 07/06/16 07/06/16 06:11 12:01 16:35 WBC 10.5 RBC 4.35 Hgb 12.8 Hct 37.2 MCV 85.5 MCH 29.4 MCHC 34.4 RDW 15.2 H Plt Count 213 MPV 9.7 Neut % (Auto) 91.5 H Lymph % (Auto) 6.5 L [place] % (Auto) 1.9 Eos % (Auto) 0.0 Baso % (Auto) 0.1 Neut # 9.6 H Lymph # 0.7 L [place] # 0.2 Eos # 0.0 Baso # 0.0 Neutrophils % (Manual) 89 H Lymphocytes % (Manual) 8 L Reactive Lymphs % 1 H Monocytes % (Manual) 2 Platelet Estimate Normal Large Platelets Present RBC Morphology Normal ESR 43 H PT 12.6 H INR 1.1 APTT 28 Sodium Potassium Chloride Carbon Dioxide Anion Gap BUN Creatinine Est GFR ( Amer) Est GFR (Non-Af Amer) POC Glucose (mg/dL) 118 H 102 Random Glucose Calcium Phosphorus Magnesium Total Bilirubin AST ALT Alkaline Phosphatase Total Protein Albumin Globulin Albumin/Globulin Ratio Triglycerides Cholesterol LDL Cholesterol Direct HDL Cholesterol Free T4 TSH 3rd Generation Prolactin 07/06/16 17:35 WBC RBC Hgb Hct MCV MCH MCHC RDW Plt Count MPV Neut % (Auto) Lymph % (Auto) [place] % (Auto) Eos % (Auto) Baso % (Auto) Neut # Lymph # [place] # Eos # Baso # Neutrophils % (Manual) Lymphocytes % (Manual) Reactive Lymphs % Monocytes % (Manual) Platelet Estimate Large Platelets RBC Morphology ESR PT INR APTT Sodium Potassium Chloride Carbon Dioxide Anion Gap BUN Creatinine Est GFR ( Amer) Est GFR (Non-Af Amer) POC Glucose (mg/dL) Random Glucose Calcium Phosphorus Magnesium Total Bilirubin AST ALT Alkaline Phosphatase Total Protein Albumin Globulin Albumin/Globulin Ratio Triglycerides Cholesterol LDL Cholesterol Direct HDL Cholesterol Free T4 TSH 3rd Generation Prolactin 6.4 Critical Care Progress Note - Nutrition Nutrition: Nutrition Category Date Time Status NPO Diet [DIET] Diets 07/06/16 Breakfast Active Attending/Attestation - Attestation I have personally seen and examined this patient.: Yes I have fully participated in the care of the patient.: Yes I have reviewed all pertinent clinical information: Yes Notes (Text): 07/06/16 18:57 Patient seen and examined in the morning, some neurological improvement, failed swallow evaluation. No TPA given initially given unknown timing of initiation of stroke. Keep BP on high side, start rectal aspirin. Start statins. NG tube for feeds.
--- NOTE | 2016-07-06 18:18 | CP.PCM.PN ---
Subjective - Date & Time of Evaluation Date of Evaluation: 07/06/16 Time of Evaluation: 12:20 - Subjective Subjective: clinically same Objective - Vital Signs/Intake and Output Vital Signs (last 24 hours): Temp Pulse Resp BP Pulse Ox 98.9 F 58 L 20 161/56 H 98 07/06/16 16:00 07/06/16 18:00 07/06/16 18:00 07/06/16 18:00 07/06/16 18:00 Intake and Output: 07/06/16 07/06/16 06:59 18:59 Intake Total 200 800 Output Total 1300 430 Balance -1100 370 - Medications Medications: Current Medications Albuterol Sulfate (Albuterol 0.042% Inhal Jennifer (1.25mg/3ml) Ud) 1.25 mg INH RQ4 PRN PRN Reason: Wheezing Last Admin: 07/05/16 20:07 Dose: 1.25 mg Aspirin (Aspirin Supp) 300 mg AL DAILY [facility] Last Admin: 07/06/16 13:05 Dose: 300 mg Clopidogrel Bisulfate (Plavix) 75 mg PO DAILY [facility] Enoxaparin Sodium (Lovenox) 40 mg SC DAILY [facility] Famotidine (Pepcid) 20 mg PO BID [facility] Hydralazine HCl (Apresoline) 10 mg IVP Q4H PRN PRN Reason: Systolic Blood Pressure Last Admin: 07/06/16 01:53 Dose: 10 mg Lactated Ringer's (Lactated Ringer's) 1,000 mls @ 100 mls/hr IV .Q10H [facility] Last Admin: 07/06/16 12:47 Dose: 100 mls/hr Metoprolol Tartrate (Lopressor) 2.5 mg IVP Q6H [facility] Last Admin: 07/06/16 18:06 Dose: Not Given Rosuvastatin Calcium (Crestor) 20 mg PO HS [facility] Last Admin: 07/05/16 22:10 Dose: 20 mg - Labs Labs: 07/06/16 06:11 07/06/16 06:10 PT 12.6 SECONDS (9.7-12.2) H 07/06/16 06:11 INR 1.1 07/06/16 06:11 APTT 28 SECONDS (21-34) 07/06/16 06:11 - Constitutional Appears: Well - Head Exam Head Exam: ATRAUMATIC, NORMAL INSPECTION, NORMOCEPHALIC - Eye Exam Eye Exam: EOMI, Normal appearance, PERRL Pupil Exam: NORMAL ACCOMODATION, PERRL - ENT Exam ENT Exam: Mucous Membranes Moist, Normal Exam - Neck Exam Neck Exam: Full ROM, Normal Inspection. absent: Lymphadenopathy - Respiratory Exam Respiratory Exam: Decreased Breath Sounds - Cardiovascular Exam Cardiovascular Exam: REGULAR RHYTHM, +S1, +S2 - GI/Abdominal Exam GI & Abdominal Exam: Soft, Diminished Bowel Sounds - Rectal Exam Rectal Exam: Deferred
--- NOTE | 2016-07-06 18:37 | CARD ---
APPROVED REPORT EXAM: Two-dimensional and M-mode echocardiogram with Doppler and color Doppler. Other Information Quality : GoodRhythm : INDICATION CVA/TIA Dizziness and Vertigo Syncope CARDIOEMBOLIC SOURCE RISK FACTORS Hypertension Diabetes M-Mode DIMENSIONS RVDd1.36 (2.1-3.2cm)Left Atrium (MM)4.50 (2.5-4.0cm) IVSd1.00 (0.7-1.1cm)Aortic Root2.77 (2.2-3.7cm) LVDd5.42 (4.0-5.6cm)Aortic Cusp Exc.1.62 (1.5-2.0cm) PWd1.18 (0.7-1.1cm)FS (%) 35 % LVDs3.50 (2.0-3.8cm)LVEF (%)64 (>50%) Aortic Valve AoV Peak Clirwovc510.2cm/Josh Peak GR.10mmHgAI P 1/2 [id number] Mitral Valve MV E Eaabtsus455.7cm/sMV A Eiipqbhs89.5cm/sE/A ratio1.8 TDI E/Lateral E'0.0E/Medial E'0.0 Tricuspid Valve TR Peak Zricwgny967sb/sTR Peak Gr.[id number] LEFT VENTRICLE The left ventricle is normal size. There is mild concentric left ventricular hypertrophy. The left ventricular function is normal. The left ventricular ejection fraction is within the normal range. about65% No regional wall motion abnormalities noted. Transmitral Doppler flow pattern is Grade III, restrictive diastolic dysfunction. No left ventricle thrombus noted on this study. There is no ventricular septal defect visualized. There is no left ventricular aneurysm. There is no mass noted in the left ventricle. RIGHT VENTRICLE The right ventricle is normal size. There is normal right ventricular wall thickness. The right ventricular systolic function is normal. ATRIA The left atrium size is moderately dilated. The right atrium size is normal. The interatrial septum is intact with no evidence for an atrial septal defect. AORTIC VALVE The aortic valve is normal in structure and function. Mildly thickened leaflets. Moderate aortic regurgitation is present. There is no aortic valvular stenosis. There is no aortic valvular vegetation. MITRAL VALVE The mitral valve is normal in structure and function. There is no evidence of mitral valve prolapse. There is no mitral valve stenosis. There is mild mitral valve regurgitation noted. TRICUSPID VALVE The tricuspid valve is normal in structure and function. There is mild tricuspid valve regurgitation noted. Estimated PA systeolic pressure is 47 mm hg. There is no tricuspid valve prolapse or vegetation. There is no tricuspid valve stenosis. PULMONIC VALVE The pulmonary valve is normal in structure and function. There is no pulmonic valvular regurgitation. There is no pulmonic valvular stenosis. GREAT VESSELS The aortic root is normal in size. The ascending aorta is normal in size. The pulmonary artery is normal. The IVC is normal in size and collapses >50% with inspiration. PERICARDIAL EFFUSION The pericardium appears normal. There is no pleural effusion. <Conclusion> Normal LVH and mild LVH Advanced diastolic dysfunction, with elevated LA pressure. Moderate pulmonary HTN Moderate aortic regurgitation.
[2016-07-06 19:19] LABS: CHOLESTEROL 116 mg/dL (0-199)
[2016-07-07] MEDS: Metoprolol 1 mg/ml Inj IVP SCH ×3 (00:50→12:53)
[2016-07-07 06:57] LABS: BASO # 0.1 K/uL (0.0-0.2); BASO % 0.7 % (0.0-2.0); EOS % 0.3 % (0.0-4.0); HEMATOCRIT 35.4 % (34.0-47.0); LYMPH # 1.7 K/uL (1.0-4.3); LYMPH % 13.9 % (20.0-40.0); MEAN CELL VOLUME 86.2 fL (81.0-99.0); MEAN CORPUSCULAR HEMOGLOBIN 29.5 pg (27.0-31.0); MEAN CORPUSCULAR HGB CONC 34.2 g/dL (33.0-37.0); MEAN PLATELET VOLUME 9.9 fL (7.2-11.7); MONO # 1.1 K/uL (0.0-0.8); MONO % 9.1 % (0.0-10.0); RED CELL DISTRIBUTION WIDTH 15.5 % (11.5-14.5); WHITE BLOOD COUNT 12.1 K/uL (4.8-10.8)
[2016-07-07 06:59] LABS: CHLORIDE 98 mmol/L (98-107)
[2016-07-07 07:00] LABS: POTASSIUM 4.1 mmol/L (3.6-5.2); SODIUM 141 mmol/L (132-148)
[2016-07-07 07:02] LABS: CARBON DIOXIDE 30 mmol/L (22-30); GFR AFRICAN-AMERICAN > 60
[2016-07-07 07:03] LABS: ALB/GLOB RATIO 1.1 (1.0-2.1); ALKALINE PHOSPHATASE 73 U/L (38-126); ALT/SGPT 29 U/L (9-52); AST/SGOT 19 U/L (14-36); BLOOD UREA NITROGEN 26 mg/dL (7-17); CALCIUM 8.6 mg/dl (8.6-10.4); GLUCOSE,RANDOM 116 mg/dL (65-105); MAGNESIUM 2.2 mg/dL (1.6-2.3); PHOSPHOROUS 3.4 mg/dL (2.5-4.5); TOTAL PROTEIN 6.5 g/dL (6.3-8.3)
--- NOTE | 2016-07-07 09:16 | CT ---
PROCEDURE: CT HEAD WITHOUT CONTRAST. HISTORY: Cerebral vascular accident. Weakness in the bilateral extremities. COMPARISON: 07/05/2016 TECHNIQUE: Axial computed tomography images were obtained through the head/brain without intravenous contrast. Radiation dose: Total exam DLP = 1003 mGy-cm. FINDINGS: HEMORRHAGE: No intracranial hemorrhage. BRAIN: Scattered focal lucencies in the subcortical and periventricular white matter suggestive for chronic microvascular ischemic change. Extensive chronic white matter disease, likely microangiopathic. New/enlarging focal left frontal hypodensity, possibly representing acute and/or subacute infarct. New/enlarging posterior left frontoparietal cortical hypodensity, possibly representing age-indeterminate infarct, possibly acute or subacute. Age related cerebral cortical volume loss. Age indeterminate left thalamic lacunar infarct. Nonacute, age indeterminate, basal ganglia lacunar infarcts. Basal ganglia calcifications. VENTRICLES: Unremarkable. No hydrocephalus. CALVARIUM: Unremarkable. PARANASAL SINUSES: Moderate mucosal thickening of the left maxillary sinus. MASTOID AIR CELLS: Unremarkable as visualized. No inflammatory changes. OTHER FINDINGS: None. IMPRESSION: New/enlarging focal left frontal hypodensity, perhaps acute or subacute infarct, correlation with MRI may be helpful for further evaluation. New/enlarging posterior left frontal parietal cortical hypodensity, possibly representing an age indeterminate infarct, possibly acute or subacute. Again correlation with MRI may be helpful if clinically indicated. Extensive chronic white matter disease, likely microangiopathic. If focal neurologic deficits persists, consider further evaluation with MRI. These findings were preliminarily reported at 10:49 p.m. on 07/06/[address] Nikki Rowland from [employer] These findings were relayed to Dr. Armani Monte at 10:55 p.m. on 07/06/2016.
[2016-07-07] MEDS ORDERED: Enoxaparin 40 mg Syringe SC SCH (10:00)
--- NOTE | 2016-07-07 14:30 | CP.PCM.PN ---
Subjective - Date & Time of Evaluation Date of Evaluation: 07/07/16 Time of Evaluation: 12:00 - Subjective Subjective: clinically same Objective - Vital Signs/Intake and Output Vital Signs (last 24 hours): Temp Pulse Resp BP Pulse Ox 98.5 F 76 21 191/71 H 98 07/07/16 04:00 07/07/16 12:00 07/07/16 12:00 07/07/16 11:57 07/07/16 12:00 Intake and Output: 07/07/16 07/07/16 06:59 18:59 Intake Total 460 35 Output Total 350 25 Balance 110 10 - Medications Medications: Current Medications Albuterol Sulfate (Albuterol 0.042% Inhal Jennifer (1.25mg/3ml) Ud) 1.25 mg INH RQ4 PRN PRN Reason: Wheezing Last Admin: 07/05/16 20:07 Dose: 1.25 mg Aspirin (Aspirin Chewable) 81 mg PO DAILY [facility] Clopidogrel Bisulfate (Plavix) 75 mg PO DAILY [facility] Last Admin: 07/07/16 09:16 Dose: 75 mg Enoxaparin Sodium (Lovenox) 40 mg SC DAILY [facility] Last Admin: 07/07/16 09:16 Dose: 40 mg Famotidine (Pepcid) 20 mg PO BID [facility] Last Admin: 07/07/16 09:16 Dose: 20 mg Lisinopril (Zestril) 20 mg PO DAILY [facility] Rosuvastatin Calcium (Crestor) 20 mg PO HS [facility] Last Admin: 07/06/16 22:10 Dose: 20 mg - Labs Labs: 07/07/16 06:49 07/07/16 06:42 PT 12.6 SECONDS (9.7-12.2) H 07/06/16 06:11 INR 1.1 07/06/16 06:11 APTT 28 SECONDS (21-34) 07/06/16 06:11 - Constitutional Appears: Well - Head Exam Head Exam: ATRAUMATIC, NORMAL INSPECTION, NORMOCEPHALIC - Eye Exam Eye Exam: EOMI, Normal appearance, PERRL Pupil Exam: NORMAL ACCOMODATION, PERRL - ENT Exam ENT Exam: Mucous Membranes Moist, Normal Exam - Neck Exam Neck Exam: Full ROM, Normal Inspection. absent: Lymphadenopathy - Respiratory Exam Respiratory Exam: Decreased Breath Sounds - Cardiovascular Exam Cardiovascular Exam: REGULAR RHYTHM, +S1, +S2 - GI/Abdominal Exam GI & Abdominal Exam: Soft, Diminished Bowel Sounds - Rectal Exam Rectal Exam: Deferred
--- NOTE | 2016-07-07 15:50 | CP.CCUPN ---
CCU Subjective - Physician Review Subjective (Free Text): 07/07/16 15:46 Pt seen/examined. Had rpt ct this am; otherwise no acute events AF/VSS NAD. 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 Neuro: Neurology following; on asa / plavix / statin pt /ot eval bp control f/u rpt CT CVS: BP controlled Pulmonary: Saturating well GI: Swallow Eval - keep patient NPO; NG tube placed Heme: LMWH ppx Endo: Maintain Euglycemia Nephro: Monitor electrolytes : almodovar catheter in place; Monitor urinary output GI and DVT Prophylaxis Favio Sprague MD CCU Objective - Vital Signs / Intake & Output Vital Signs (Last 4 hours): Vital Signs Pulse Resp BP Pulse Ox 07/07/16 12:00 76 21 98 07/07/16 11:57 78 19 191/71 H 96 Intake and Output (Last 8hrs): Intake & Output 07/07/16 07/07/16 07/07/16 06:59 14:59 22:59 Intake Total 160 35 Output Total 235 25 Balance -75 10 Weight 175 lb 7.807 oz Intake: Intake, IV Amount 0 Lt AC #20 0 Tube Feeding 160 35 Output: Urine 235 25 Urethral (Almodovar) 235 25 - Medications Active Medications: Active Medications Generic Name Dose Route Start Last Admin Trade Name Freq PRN Reason Stop Dose Admin Albuterol Sulfate 1.25 mg 07/05/16 19:54 07/05/16 20:07 Albuterol 0.042% Inhal Jennifer (1.25mg/3ml) Ud INH 1.25 mg RQ4 PRN Administration Wheezing Aspirin 81 mg 07/08/16 10:00 Aspirin Chewable PO DAILY [facility] Clopidogrel Bisulfate 75 mg 07/07/16 10:00 07/07/16 09:16 Plavix PO 75 mg DAILY [facility] Administration Enoxaparin Sodium 40 mg 07/07/16 10:00 07/07/16 09:16 Lovenox SC 40 mg DAILY [facility] Administration Famotidine 20 mg 07/07/16 10:00 07/07/16 09:16 Pepcid PO 20 mg BID [facility] Administration Lisinopril 20 mg 07/08/16 10:00 Zestril PO DAILY [facility] Rosuvastatin Calcium 20 mg 07/05/16 22:00 07/06/16 22:10 Crestor PO 20 mg HS [facility] Administration - Patient Studies Lab Studies: Microbiology Studies 07/05/16 19:15 MRSA Culture (Admit) - Final Nose MRSA NOT DETECTED Lab Studies 07/07/16 07/07/16 07/06/16 Range/Units 06:49 06:42 21:28 WBC 12.1 H (4.8-10.8) K/uL RBC 4.11 (3.80-5.20) Mil/uL Hgb 12.1 (11.0-16.0) g/dL Hct 35.4 (34.0-47.0) % MCV 86.2 (81.0-99.0) fL MCH 29.5 (27.0-31.0) pg MCHC 34.2 (33.0-37.0) g/dL RDW 15.5 H (11.5-14.5) % Plt Count 214 (130-400) K/uL MPV 9.9 (7.2-11.7) fL Neut % (Auto) 76.0 H (50.0-75.0) % Lymph % (Auto) 13.9 L (20.0-40.0) % Green % (Auto) 9.1 (0.0-10.0) % Eos % (Auto) 0.3 (0.0-4.0) % Baso % (Auto) 0.7 (0.0-2.0) % Neut # 9.2 H (1.8-7.0) K/uL Lymph # 1.7 (1.0-4.3) K/uL Green # 1.1 H (0.0-0.8) K/uL Eos # 0.0 (0.0-0.7) K/uL Baso # 0.1 (0.0-0.2) K/uL Sodium 141 (132-148) mmol/L Potassium 4.1 (3.6-5.2) mmol/L Chloride 98 (98-107) mmol/L Carbon Dioxide 30 (22-30) mmol/L Anion Gap 17 (10-20) BUN 26 H (7-17) mg/dL Creatinine 0.8 (0.7-1.2) MG/DL Est GFR ( Amer) > 60 Est GFR (Non-Af Amer) > 60 POC Glucose (mg/dL) 90 (65-110) mg/dL Random Glucose 116 H (65-105) mg/dL Calcium 8.6 (8.6-10.4) mg/dl Phosphorus 3.4 (2.5-4.5) mg/dL Magnesium 2.2 (1.6-2.3) mg/dL Total Bilirubin 1.0 (0.2-1.3) mg/dL AST 19 (14-36) U/L ALT 29 (9-52) U/L Alkaline Phosphatase 73 (38-126) U/L Total Protein 6.5 (6.3-8.3) g/dL Albumin 3.4 L (3.5-5.0) g/dL Globulin 3.1 (2.2-3.9) gm/dL Albumin/Globulin Ratio 1.1 (1.0-2.1) Triglycerides (0-149) mg/dL Cholesterol (0-199) mg/dL LDL Cholesterol Direct (0-129) mg/dL HDL Cholesterol (30-70) mg/dL Prolactin (3.0-18.9) ng/mL 07/06/16 07/06/16 07/06/16 Range/Units 19:11 17:35 16:35 WBC (4.8-10.8) K/uL RBC (3.80-5.20) Mil/uL Hgb (11.0-16.0) g/dL Hct (34.0-47.0) % MCV (81.0-99.0) fL MCH (27.0-31.0) pg MCHC (33.0-37.0) g/dL RDW (11.5-14.5) % Plt Count (130-400) K/uL MPV (7.2-11.7) fL Neut % (Auto) (50.0-75.0) % Lymph % (Auto) (20.0-40.0) % Green % (Auto) (0.0-10.0) % Eos % (Auto) (0.0-4.0) % Baso % (Auto) (0.0-2.0) % Neut # (1.8-7.0) K/uL Lymph # (1.0-4.3) K/uL Green # (0.0-0.8) K/uL Eos # (0.0-0.7) K/uL Baso # (0.0-0.2) K/uL Sodium (132-148) mmol/L Potassium (3.6-5.2) mmol/L Chloride (98-107) mmol/L Carbon Dioxide (22-30) mmol/L Anion Gap (10-20) BUN (7-17) mg/dL Creatinine (0.7-1.2) MG/DL Est GFR ( Amer) Est GFR (Non-Af Amer) POC Glucose (mg/dL) 102 (65-110) mg/dL Random Glucose (65-105) mg/dL Calcium (8.6-10.4) mg/dl Phosphorus (2.5-4.5) mg/dL Magnesium (1.6-2.3) mg/dL Total Bilirubin (0.2-1.3) mg/dL AST (14-36) U/L ALT (9-52) U/L Alkaline Phosphatase (38-126) U/L Total Protein (6.3-8.3) g/dL Albumin (3.5-5.0) g/dL Globulin (2.2-3.9) gm/dL Albumin/Globulin Ratio (1.0-2.1) Triglycerides 88 D (0-149) mg/dL Cholesterol 116 (0-199) mg/dL LDL Cholesterol Direct 50 (0-129) mg/dL HDL Cholesterol 42 (30-70) mg/dL Prolactin 6.4 (3.0-18.9) ng/mL Laboratory Results - last 24 hr 07/06/16 07/06/16 07/06/16 16:35 17:35 19:11 WBC RBC Hgb Hct MCV MCH MCHC RDW Plt Count MPV Neut % (Auto) Lymph % (Auto) Green % (Auto) Eos % (Auto) Baso % (Auto) Neut # Lymph # Green # Eos # Baso # Sodium Potassium Chloride Carbon Dioxide Anion Gap BUN Creatinine Est GFR ( Amer) Est GFR (Non-Af Amer) POC Glucose (mg/dL) 102 Random Glucose Calcium Phosphorus Magnesium Total Bilirubin AST ALT Alkaline Phosphatase Total Protein Albumin Globulin Albumin/Globulin Ratio Triglycerides 88 D Cholesterol 116 LDL Cholesterol Direct 50 HDL Cholesterol 42 Prolactin 6.4 07/06/16 07/07/16 07/07/16 21:28 06:42 06:49 WBC 12.1 H RBC 4.11 Hgb 12.1 Hct 35.4 MCV 86.2 MCH 29.5 MCHC 34.2 RDW 15.5 H Plt Count 214 MPV 9.9 Neut % (Auto) 76.0 H Lymph % (Auto) 13.9 L Green % (Auto) 9.1 Eos % (Auto) 0.3 Baso % (Auto) 0.7 Neut # 9.2 H Lymph # 1.7 Green # 1.1 H Eos # 0.0 Baso # 0.1 Sodium 141 Potassium 4.1 Chloride 98 Carbon Dioxide 30 Anion Gap 17 BUN 26 H Creatinine 0.8 Est GFR ( Amer) > 60 Est GFR (Non-Af Amer) > 60 POC Glucose (mg/dL) 90 Random Glucose 116 H Calcium 8.6 Phosphorus 3.4 Magnesium 2.2 Total Bilirubin 1.0 AST 19 ALT 29 Alkaline Phosphatase 73 Total Protein 6.5 Albumin 3.4 L Globulin 3.1 Albumin/Globulin Ratio 1.1 Triglycerides Cholesterol LDL Cholesterol Direct HDL Cholesterol Prolactin Fingerstick Blood Sugar Results: 121 Critical Care Progress Note - Nutrition Nutrition: Nutrition Category Date Time Status NPO Diet [DIET] Diets 07/06/16 Breakfast Active
--- NOTE | 2016-07-07 19:02 | PN ---
DATE: 07/07/2016 TIME OF EVALUATION: 4:45 p.m. NEUROLOGICAL PROBLEM: Left middle cerebral artery dysfunction, right-sided hemiplegia with a right l ateral gaze preponderance. VITAL SIGNS: Blood pressure 191/71, mean arterial pressure of 111, respiratory rate 16, temperature 98.8, pulse rate 76. The patient still aphasic. The right dense hemiplegia. Spontaneous movement on the left side noted. Repeat CAT scan showed hypodense ischemic process over left MCA territory, consistent with her clinic al findings. RECOMMENDATIONS: Continue antiplatelets, NG feeding. If swallow function is not good, the patient s hould be benefited with PEG placement, and bedside physical therapy should be addressed. Fan See MD cc: [id number] TT: 07/07/2016 19:02:04 Confirmation # [id number] Dictation # [id number]
[2016-07-07] MEDS ORDERED: Metoprolol 1 mg/ml Inj IVP ONE (22:30)
[2016-07-08] MEDS: Enoxaparin 100 mg Syringe SC SCH ×3 (00:02→21:55)
--- NOTE | 2016-07-08 03:25 | CP.PCM.PN ---
Subjective - Date & Time of Evaluation Date of Evaluation: 07/08/16 Time of Evaluation: 03:23 - Subjective Subjective: Patient's rhythm changed to afib with RVR in range of 120-160, she was given additional metoprolol 5mg, then restarted on her coreg. Given her recent non hemorrhagic stroke with finding of PAF, she was started on therapeutic lovenox. Objective - Vital Signs/Intake and Output Vital Signs (last 24 hours): Temp Pulse Resp BP Pulse Ox 99 F 119 H 23 136/71 99 07/07/16 16:00 07/08/16 00:00 07/08/16 00:00 07/07/16 23:57 07/08/16 00:00 Intake and Output: 07/07/16 07/08/16 18:59 07:59 Intake Total 480 45 Output Total 385 35 Balance 95 10 - Medications Medications: Current Medications Albuterol Sulfate (Albuterol 0.042% Inhal Jennifer (1.25mg/3ml) Ud) 1.25 mg INH RQ4 PRN PRN Reason: Wheezing Last Admin: 07/05/16 20:07 Dose: 1.25 mg Aspirin (Aspirin Chewable) 81 mg PO DAILY [facility] Carvedilol (Coreg) 12.5 mg PO BID [facility] Clopidogrel Bisulfate (Plavix) 75 mg PO DAILY [facility] Last Admin: 07/07/16 09:16 Dose: 75 mg Enoxaparin Sodium (Lovenox) 85 mg SC Q12 [facility] Last Admin: 07/08/16 00:02 Dose: 85 mg Famotidine (Pepcid) 20 mg PO BID [facility] Last Admin: 07/07/16 18:15 Dose: 20 mg Lisinopril (Zestril) 20 mg PO DAILY [facility] Rosuvastatin Calcium (Crestor) 20 mg PO HS [facility] Last Admin: 07/07/16 21:25 Dose: 20 mg - Labs Labs: 07/07/16 06:49 07/07/16 06:42 PT 12.6 SECONDS (9.7-12.2) H 07/06/16 06:11 INR 1.1 07/06/16 06:11 APTT 28 SECONDS (21-34) 07/06/16 06:11
[2016-07-08 06:22] LABS: BASO # 0.1 K/uL (0.0-0.2); BASO % 0.5 % (0.0-2.0); EOS # 0.1 K/uL (0.0-0.7); EOS % 1.2 % (0.0-4.0); HEMATOCRIT 38.3 % (34.0-47.0); LYMPH # 1.1 K/uL (1.0-4.3); LYMPH % 10.9 % (20.0-40.0); MEAN CELL VOLUME 86.3 fL (81.0-99.0); MEAN CORPUSCULAR HEMOGLOBIN 29.4 pg (27.0-31.0); MEAN CORPUSCULAR HGB CONC 34.1 g/dL (33.0-37.0); MONO # 1.1 K/uL (0.0-0.8); MONO % 10.9 % (0.0-10.0); RED CELL DISTRIBUTION WIDTH 15.2 % (11.5-14.5)
[2016-07-08 06:35] LABS: CHLORIDE 97 mmol/L (98-107); POTASSIUM 3.8 mmol/L (3.6-5.2); SODIUM 140 mmol/L (132-148)
[2016-07-08 06:37] LABS: CARBON DIOXIDE 30 mmol/L (22-30); GFR AFRICAN-AMERICAN > 60
[2016-07-08 06:38] LABS: ALKALINE PHOSPHATASE 89 U/L (38-126); ALT/SGPT 29 U/L (9-52); AST/SGOT 24 U/L (14-36); BLOOD UREA NITROGEN 23 mg/dL (7-17); CALCIUM 8.6 mg/dl (8.6-10.4); GLUCOSE,RANDOM 153 mg/dL (65-105); PHOSPHOROUS 2.9 mg/dL (2.5-4.5); TOTAL PROTEIN 6.6 g/dL (6.3-8.3)
[2016-07-08] MEDS ORDERED: Enoxaparin 40 mg Syringe SC SCH (10:00)
--- NOTE | 2016-07-08 11:36 | CP.CCUPN ---
CCU Subjective - Physician Review Events Since Last Encounter (Free Text): 07/08/16 11:36 75-year-old female with history of COPD hypertension admitted with the left MCA thromboembolic CVA, right-sided weakness and aphasia. Patient is having some difficulty in swallowing, currently receiving NG tube feeding. Patient is opening her eyes, but she is not able to move the right side. Patient is currently on anticoagulation, antiplatelets. Atrial fibrillation noted intermittently. Diabetes controlled located now. On examination: Vital signs reviewed in Blood pressure is slightly on the low side. 99/60. Chest good air entry bilaterally regular heart sound nontender abdomen Assessment and recommendation: 75-year-old female with history of hypertension now having intermittent atrial fibrillation, rate is uncontrolled currently, but fairly maintained with the Cardizem. Blood pressure is slightly on the low side. We'll increase the blood pressure is a normal saline and discontinue Coreg. Patient is receiving Cardizem. Maintain the blood pressure is on the high side. NG tube feeding. Physical therapy. Overall prognosis is guarded. DVT and GI prophylaxis CCU Objective - Vital Signs / Intake & Output Vital Signs (Last 4 hours): Vital Signs BP 07/08/16 10:29 111/57 L Intake and Output (Last 8hrs): Intake & Output 07/07/16 07/08/16 07/08/16 21:59 06:59 14:59 Intake Total 45 Output Total 42 Balance 3 Weight Intake: Tube Feeding 45 Lipid Output: Urine 42 Urethral (Kidd) 42 - Physical Exam Head: Positive for: Atraumatic, Normocephalic Pupils: Positive for: PERRL Extroacular Muscles: Positive for: Other (gaze only to left side ) Conjunctiva: Positive for: Normal Mouth: Positive for: Moist Mucous Membranes Neck: Negative for: Bruit Respiratory/Chest: Positive for: Wheezes. Negative for: Respiratory Distress, Rales, Rhonchi Cardiovascular: Positive for: Normal S1, S2. Negative for: Tachycardic Abdomen: Positive for: Normal Bowel Sounds. Negative for: Tenderness, Distention Upper Extremity: Positive for: Normal Inspection, Other Lower Extremity: Negative for: Edema Neurological: Positive for: Other (Gaze to left side, corneal reflex intact, 5/ 5 strength to LUE and LLE, 0/5 stength to RUE and RLE, pupils reactive to light ) Psychiatric: Positive for: Alert - Medications Active Medications: Active Medications Generic Name Dose Route Start Last Admin Trade Name Freq PRN Reason Stop Dose Admin Albuterol Sulfate 1.25 mg 07/05/16 19:54 07/05/16 20:07 Albuterol 0.042% Inhal Jennifer (1.25mg/3ml) Ud INH 1.25 mg RQ4 PRN Administration Wheezing Aspirin 81 mg 07/08/16 10:00 07/08/16 10:29 Aspirin Chewable PO 81 mg DAILY [facility] Administration Clopidogrel Bisulfate 75 mg 07/07/16 10:00 07/08/16 10:29 Plavix PO 75 mg DAILY [facility] Administration Diltiazem HCl 30 mg 07/08/16 10:00 07/08/16 10:29 Cardizem PO 30 mg QID [facility] Administration Enoxaparin Sodium 85 mg 07/07/16 23:45 07/08/16 10:29 Lovenox SC 85 mg Q12 [facility] Administration Famotidine 20 mg 07/07/16 10:00 07/08/16 10:28 Pepcid PO 20 mg BID [facility] Administration Sodium Chloride 1,000 mls @ 100 mls/hr 07/08/16 11:45 Sodium Chloride 0.9% IV .Q10H [facility] Lisinopril 20 mg 07/08/16 10:00 07/08/16 10:29 Zestril PO 20 mg DAILY [facility] Administration Rosuvastatin Calcium 20 mg 07/05/16 22:00 07/07/16 21:25 Crestor PO 20 mg HS [facility] Administration - Patient Studies Lab Studies: Lab Studies 07/08/16 07/07/16 Range/Units 06:13 23:36 WBC 10.0 (4.8-10.8) K/uL RBC 4.43 (3.80-5.20) Mil/uL Hgb 13.1 (11.0-16.0) g/dL Hct 38.3 (34.0-47.0) % MCV 86.3 (81.0-99.0) fL MCH 29.4 (27.0-31.0) pg MCHC 34.1 (33.0-37.0) g/dL RDW 15.2 H (11.5-14.5) % Plt Count 198 (130-400) K/uL MPV 10.0 (7.2-11.7) fL Neut % (Auto) 76.5 H (50.0-75.0) % Lymph % (Auto) 10.9 L (20.0-40.0) % Terrell % (Auto) 10.9 H (0.0-10.0) % Eos % (Auto) 1.2 (0.0-4.0) % Baso % (Auto) 0.5 (0.0-2.0) % Neut # 7.7 H (1.8-7.0) K/uL Lymph # 1.1 (1.0-4.3) K/uL Terrell # 1.1 H (0.0-0.8) K/uL Eos # 0.1 (0.0-0.7) K/uL Baso # 0.1 (0.0-0.2) K/uL Sodium 140 (132-148) mmol/L Potassium 3.8 (3.6-5.2) mmol/L Chloride 97 L (98-107) mmol/L Carbon Dioxide 30 (22-30) mmol/L Anion Gap 17 (10-20) BUN 23 H (7-17) mg/dL Creatinine 0.6 L (0.7-1.2) MG/DL Est GFR ( Amer) > 60 Est GFR (Non-Af Amer) > 60 POC Glucose (mg/dL) 133 H (65-110) mg/dL Random Glucose 153 H (65-105) mg/dL Calcium 8.6 (8.6-10.4) mg/dl Phosphorus 2.9 (2.5-4.5) mg/dL Magnesium 2.0 (1.6-2.3) mg/dL Total Bilirubin 1.0 (0.2-1.3) mg/dL AST 24 (14-36) U/L ALT 29 (9-52) U/L Alkaline Phosphatase 89 (38-126) U/L Total Protein 6.6 (6.3-8.3) g/dL Albumin 3.3 L (3.5-5.0) g/dL Globulin 3.3 (2.2-3.9) gm/dL Albumin/Globulin Ratio 1.0 (1.0-2.1) Laboratory Results - last 24 hr 03/11/17 03/12/17 23:36 06:13 WBC 10.0 RBC 4.43 Hgb 13.1 Hct 38.3 MCV 86.3 MCH 29.4 MCHC 34.1 RDW 15.2 H Plt Count 198 MPV 10.0 Neut % (Auto) 76.5 H Lymph % (Auto) 10.9 L Terrell % (Auto) 10.9 H Eos % (Auto) 1.2 Baso % (Auto) 0.5 Neut # 7.7 H Lymph # 1.1 Terrell # 1.1 H Eos # 0.1 Baso # 0.1 Sodium 140 Potassium 3.8 Chloride 97 L Carbon Dioxide 30 Anion Gap 17 BUN 23 H Creatinine 0.6 L Est GFR ( Amer) > 60 Est GFR (Non-Af Amer) > 60 POC Glucose (mg/dL) 133 H Random Glucose 153 H Calcium 8.6 Phosphorus 2.9 Magnesium 2.0 Total Bilirubin 1.0 AST 24 ALT 29 Alkaline Phosphatase 89 Total Protein 6.6 Albumin 3.3 L Globulin 3.3 Albumin/Globulin Ratio 1.0 Fingerstick Blood Sugar Results: 121 Critical Care Progress Note - Nutrition Nutrition: Nutrition Category Date Time Status NPO Diet [DIET] Diets 07/06/16 Breakfast Active
[2016-07-08] MEDS: Sodium Chloride 0.9% 1,000 ML IV SCH ×2 (13:00→21:50)
--- NOTE | 2016-07-08 14:32 | PN ---
DATE: 07/08/2016 TIME OF EVALUATION: 1 p.m. 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 PHYSICAL EXAMINATION: VITAL SIGNS: Blood pressure 111/57, respiratory rate 20, pulse rate 105. NEUROLOGIC: The patient seems to be more awake. Good visual fixation. She could try to copy the si gn. She could able to move her left upper extremity against gravity. Extraocular movement, roving c onjugate gaze noted. Right side dense hemiplegia. The patient is on NG tube. RECOMMENDATIONS: Speech and swallow evaluation. The patient may be a good candidate for PEG placeme nt. Continue the present management and deep venous thrombosis prophylaxis as she has been getting. Fan See MD cc: [id number] TT: 07/08/2016 14:32:01 Confirmation # [id number] Dictation # [id number]
--- NOTE | 2016-07-08 17:06 | CP.PCM.PN ---
Subjective - Date & Time of Evaluation Date of Evaluation: 07/08/16 Objective - Vital Signs/Intake and Output Vital Signs (last 24 hours): Temp Pulse Resp BP Pulse Ox 97.3 F L 105 H 20 111/57 L 98 07/08/16 05:00 07/08/16 06:00 07/08/16 06:00 07/08/16 10:29 07/08/16 06:00 Intake and Output: 07/08/16 07/08/16 06:59 18:59 Intake Total 45 Output Total 42 Balance 3 - Medications Medications: Current Medications Albuterol Sulfate (Albuterol 0.042% Inhal Jennifer (1.25mg/3ml) Ud) 1.25 mg INH RQ4 PRN PRN Reason: Wheezing Last Admin: 07/05/16 20:07 Dose: 1.25 mg Aspirin (Aspirin Chewable) 81 mg PO DAILY [facility] Last Admin: 07/08/16 10:29 Dose: 81 mg Clopidogrel Bisulfate (Plavix) 75 mg PO DAILY [facility] Last Admin: 07/08/16 10:29 Dose: 75 mg Diltiazem HCl (Cardizem) 30 mg PO QID [facility] Last Admin: 07/08/16 15:00 Dose: 30 mg Enoxaparin Sodium (Lovenox) 85 mg SC Q12 [facility] Last Admin: 07/08/16 10:29 Dose: 85 mg Famotidine (Pepcid) 20 mg PO BID [facility] Last Admin: 07/08/16 10:28 Dose: 20 mg Sodium Chloride (Sodium Chloride 0.9%) 1,000 mls @ 100 mls/hr IV .Q10H [facility] Last Admin: 07/08/16 13:00 Dose: 100 mls/hr Lisinopril (Zestril) 20 mg PO DAILY [facility] Last Admin: 07/08/16 10:29 Dose: 20 mg Rosuvastatin Calcium (Crestor) 20 mg PO HS [facility] Last Admin: 07/07/16 21:25 Dose: 20 mg - Labs Labs: 07/08/16 06:13 07/08/16 06:13 PT 12.6 SECONDS (9.7-12.2) H 07/06/16 06:11 INR 1.1 07/06/16 06:11 APTT 28 SECONDS (21-34) 07/06/16 06:11
[2016-07-09] MEDS: Sodium Chloride 0.9% 1,000 ML IV SCH (02:13)
[2016-07-09 06:33] LABS: BASO # 0.1 K/uL (0.0-0.2); BASO % 0.5 % (0.0-2.0); EOS # 0.3 K/uL (0.0-0.7); EOS % 2.9 % (0.0-4.0); LYMPH # 1.4 K/uL (1.0-4.3); LYMPH % 13.8 % (20.0-40.0); MEAN CELL VOLUME 85.8 fL (81.0-99.0); MEAN CORPUSCULAR HEMOGLOBIN 29.5 pg (27.0-31.0); MEAN CORPUSCULAR HGB CONC 34.3 g/dL (33.0-37.0); MEAN PLATELET VOLUME 10.1 fL (7.2-11.7); MONO # 0.8 K/uL (0.0-0.8); MONO % 7.6 % (0.0-10.0); NRBC % 0.1 % (0.0-2.0); RED CELL DISTRIBUTION WIDTH 15.4 % (11.5-14.5); WHITE BLOOD COUNT 10.3 K/uL (4.8-10.8)
[2016-07-09 06:47] LABS: CHLORIDE 100 mmol/L (98-107)
[2016-07-09 06:48] LABS: POTASSIUM 3.5 mmol/L (3.6-5.2); SODIUM 138 mmol/L (132-148)
[2016-07-09 06:50] LABS: ALKALINE PHOSPHATASE 89 U/L (38-126); AST/SGOT 23 U/L (14-36); BILIRUBIN,TOTAL 0.7 mg/dL (0.2-1.3); CARBON DIOXIDE 28 mmol/L (22-30); GFR AFRICAN-AMERICAN > 60; TOTAL PROTEIN 6.1 g/dL (6.3-8.3)
[2016-07-09 06:51] LABS: ALT/SGPT 35 U/L (9-52); BLOOD UREA NITROGEN 19 mg/dL (7-17); GLUCOSE,RANDOM 126 mg/dL (65-105); MAGNESIUM 1.8 mg/dL (1.6-2.3); PHOSPHOROUS 2.4 mg/dL (2.5-4.5)
--- NOTE | 2016-07-09 07:28 | PN ---
DATE: 07/09/2016 LOCATION: The patient's room number ICU bed 16. 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 PHYSICAL EXAMINATION: VITAL SIGNS: Blood pressure 139/61 with mean arterial pressure of 87, respiratory rate 16, temperatu re afebrile, pulse rate 96. NEUROLOGIC: The patient is awake, good visual fixation. She can able to follow one-step command. S he could able to lift her left arm up against gravity. She could do the same thing on her left lower extremity. The new finding, she could able to lift her right leg against gravity as well; however, comparatively weaker to her left side. Right arm is 0/5. DEEP TENDON REFLEXES: Unchanged. Plantars are upgoing on the left and right side. RECOMMENDATIONS: The patient should have a speech and swallow evaluation. Again, if she fails, I would like her to be evaluated by assisted living nursing director for possible PEG placement to improve her nutritional status and to avoid nasogastric aspiration and complicating pneumonia. The patient should continue DVT prophylaxis. Continue the present management. The patient should have MRI of the brain as requested earlier to assess her progression of the stroke . The patient will be followed closely with you. Fan See MD cc: [id number] TT: 07/09/2016 07:27:14 Confirmation # [id number] Dictation # [id number]
--- NOTE | 2016-07-09 08:36 | EEG ---
DATE: 07/08/2016 This is a 16-channel electroencephalogram of a lethargic adult. The study was performed at the [facility]. The resting electroencephalogram shows a diffuse 30-40 microvolt theta activities noted in bilat eral cortical leads. Some muscle artifact contaminated the frontal leads. The photic stimulation di d not evoke driving response noted at 2-20 Hz. IMPRESSION: This is abnormal electroencephalogram because of persistent slowing throughout the recor d suggestive of bilateral cerebral dysfunction. This is probably secondary to metabolic vascular or degenerative process. Please correlate the finding with the neurological and radiological studies. ____ Fan See MD cc: [id number] TT: 07/08/2016 21:07:10 Confirmation # [id number] Dictation # [id number] 07/08/2016 23:28:12
[2016-07-09] MEDS ORDERED: Potassium Chloride 20 mEq/15 ml LIQ UD PO ONE (09:00)
[2016-07-09] MEDS ORDERED: Potassium Chloride 20 mEq ER Tab PO ONE (09:00)
[2016-07-09] MEDS: Enoxaparin 100 mg Syringe SC SCH ×2 (09:43→22:15)
[2016-07-09] MEDS ORDERED: Potassium Phosphate 15 MMOLE in Dextrose 5% In Water 250 ML IVPB ONE (10:03)
--- NOTE | 2016-07-09 10:23 | CP.PCM.PN ---
Subjective - Date & Time of Evaluation Date of Evaluation: 07/08/16 Time of Evaluation: 17:30 - Subjective Subjective: CC: Afib HPI: 76 year old female with HTN. She presents to [facility] with one day onset of severe hemiparesis. She unable to speak with me. It appers the symptoms progressed as she was being brought to the hospital and are now stable. She is unable to move her right upper and lower extremities. Social: +Tobacco abuse FHx: No premature ASHD in mother or father Surgical history PCI 2009 Objective - Vital Signs/Intake and Output Vital Signs (last 24 hours): Temp Pulse Resp BP Pulse Ox 98.2 F 93 H 21 138/67 97 07/09/16 08:00 07/09/16 07:57 07/09/16 07:57 07/09/16 07:57 07/09/16 07:57 Intake and Output: 07/09/16 07/09/16 06:59 18:59 Intake Total 2240 290 Output Total 445 125 Balance 1795 165 - Medications Medications: Current Medications Albuterol Sulfate (Albuterol 0.042% Inhal Jennifer (1.25mg/3ml) Ud) 1.25 mg INH RQ4 PRN PRN Reason: Wheezing Last Admin: 07/05/16 20:07 Dose: 1.25 mg Aspirin (Aspirin Chewable) 81 mg PO DAILY [facility] Last Admin: 07/09/16 09:43 Dose: 81 mg Carvedilol (Coreg) 3.125 mg PO BID [facility] Clopidogrel Bisulfate (Plavix) 75 mg PO DAILY [facility] Last Admin: 07/09/16 09:43 Dose: 75 mg Diltiazem HCl (Cardizem) 30 mg PO QID [facility] Last Admin: 07/09/16 09:43 Dose: 30 mg Enoxaparin Sodium (Lovenox) 85 mg SC Q12 [facility] Last Admin: 07/09/16 09:43 Dose: 85 mg Famotidine (Pepcid) 20 mg PO BID [facility] Last Admin: 07/09/16 09:42 Dose: 20 mg Potassium Phosphate 15 mmole/ (Dextrose) 255 mls @ 42.5 mls/hr IVPB ONCE ONE Stop: 07/09/16 16:02 Lisinopril (Zestril) 20 mg PO DAILY [facility] Last Admin: 07/09/16 09:43 Dose: 20 mg Rosuvastatin Calcium (Crestor) 20 mg PO HS [facility] Last Admin: 07/08/16 21:51 Dose: 20 mg - Labs Labs: 07/09/16 06:20 07/09/16 06:20 PT 12.6 SECONDS (9.7-12.2) H 07/06/16 06:11 INR 1.1 07/06/16 06:11 APTT 28 SECONDS (21-34) 07/06/16 06:11 Assessment and Plan - Assessment and Plan (Free Text) Assessment: 76 year old female with New onset judi paresis consistent with acute CVA but there is no direct evidence on MRI, repeat study is pending. Neuro is working this up also for a seizure. New onset atrial fibrillaiton - I reviewed EKG's from the outpatient and it appears the patient has NSR, so if cleared by neuro I would suggest anticoagulation Given these findings we would should probably consider MARÍA ELENA once the diagnosis of CVA is established HTN is chronic and stable on cardizem and lisinopril ASHD - continue high dose asprin and dual anti platelet therapy but this will need to modified if we choose to anticoagulate.
--- NOTE | 2016-07-09 14:36 | CP.PCM.PN ---
Subjective - Date & Time of Evaluation Date of Evaluation: 07/09/16 Time of Evaluation: 12:20 - Subjective Subjective: clinically same Objective - Vital Signs/Intake and Output Vital Signs (last 24 hours): Temp Pulse Resp BP Pulse Ox 98.4 F 105 H 22 131/60 95 07/09/16 12:00 07/09/16 13:51 07/09/16 12:57 07/09/16 12:57 07/09/16 13:51 Intake and Output: 07/09/16 07/09/16 06:59 18:59 Intake Total 2240 830 Output Total 445 375 Balance 1795 455 - Medications Medications: Current Medications Albuterol Sulfate (Albuterol 0.042% Inhal Jennifer (1.25mg/3ml) Ud) 1.25 mg INH RQ4 PRN PRN Reason: Wheezing Last Admin: 07/05/16 20:07 Dose: 1.25 mg Aspirin (Aspirin Chewable) 81 mg PO DAILY [facility] Last Admin: 07/09/16 09:43 Dose: 81 mg Carvedilol (Coreg) 3.125 mg PO BID [facility] Last Admin: 07/09/16 11:27 Dose: 3.125 mg Clopidogrel Bisulfate (Plavix) 75 mg PO DAILY [facility] Last Admin: 07/09/16 09:43 Dose: 75 mg Diltiazem HCl (Cardizem) 30 mg PO QID [facility] Last Admin: 07/09/16 13:35 Dose: 30 mg Enoxaparin Sodium (Lovenox) 85 mg SC Q12 [facility] Last Admin: 07/09/16 09:43 Dose: 85 mg Famotidine (Pepcid) 20 mg PO BID [facility] Last Admin: 07/09/16 09:42 Dose: 20 mg Potassium Phosphate 15 mmole/ (Dextrose) 255 mls @ 42.5 mls/hr IVPB ONCE ONE Stop: 07/09/16 16:02 Last Admin: 07/09/16 11:41 Dose: 42.5 mls/hr Lisinopril (Zestril) 20 mg PO DAILY [facility] Last Admin: 07/09/16 09:43 Dose: 20 mg Rosuvastatin Calcium (Crestor) 20 mg PO HS [facility] Last Admin: 07/08/16 21:51 Dose: 20 mg - Labs Labs: 07/09/16 06:20 07/09/16 06:20 PT 12.6 SECONDS (9.7-12.2) H 07/06/16 06:11 INR 1.1 07/06/16 06:11 APTT 28 SECONDS (21-34) 07/06/16 06:11 - Constitutional Appears: Well - Head Exam Head Exam: ATRAUMATIC, NORMAL INSPECTION, NORMOCEPHALIC - Eye Exam Eye Exam: EOMI, Normal appearance, PERRL Pupil Exam: NORMAL ACCOMODATION, PERRL - ENT Exam ENT Exam: Mucous Membranes Moist, Normal Exam - Neck Exam Neck Exam: Full ROM, Normal Inspection. absent: Lymphadenopathy - Respiratory Exam Respiratory Exam: Decreased Breath Sounds - Cardiovascular Exam Cardiovascular Exam: REGULAR RHYTHM, +S1, +S2 - GI/Abdominal Exam GI & Abdominal Exam: Soft, Diminished Bowel Sounds - Rectal Exam Rectal Exam: Deferred
--- NOTE | 2016-07-09 14:51 | CP.CCUPN ---
CCU Subjective - Physician Review Subjective (Free Text): 07/09/16 16:34 Patient was seen at beside. No acute events overnight. Patient does not seem to be in any distress. Nursing reports no acute events overnight. Patient is globally aphasic. She can raise her left arm and leg against gravity. Right upper extremity 0/5 in strength. 1/5 Right lower extremity. Patient has judi- neglect on the right side. Patient is responsive to pain bilaterally and symmetrically. Patient can follow commands. Patient passed swallow eval. She is to be transferred to telemetry floor today. 07/09/16 16:47 Critical Care Time Spent (in minutes): 37 CCU Objective - Vital Signs / Intake & Output Vital Signs (Last 4 hours): Vital Signs Temp Pulse Resp BP Pulse Ox 07/09/16 13:51 105 H 95 07/09/16 12:57 100 H 22 131/60 95 07/09/16 12:00 98.4 F 07/09/16 11:57 125 H 28 H 169/67 H 93 L 07/09/16 10:57 102 H 22 156/61 H 96 Intake and Output (Last 8hrs): Intake & Output 07/08/16 07/09/16 07/09/16 22:59 06:59 14:59 Intake Total 1705 1410 830 Output Total 285 320 375 Balance 1420 1090 455 Weight 184 lb 9.6 oz Intake: Intake, IV Amount 800 800 400 Lt AC #20 800 800 400 Tube Feeding 405 360 180 Other 500 250 250 Output: Urine 285 320 375 Urethral (Almodovar) 285 320 375 - Physical Exam Head: Positive for: Atraumatic, Normocephalic Pupils: Positive for: PERRL Extroacular Muscles: Positive for: Other (gaze only to left side ) Conjunctiva: Positive for: Normal Mouth: Positive for: Moist Mucous Membranes Neck: Negative for: Bruit Respiratory/Chest: Negative for: Respiratory Distress, Rales, Rhonchi Cardiovascular: Positive for: Normal S1, S2. Negative for: Tachycardic Abdomen: Positive for: Normal Bowel Sounds. Negative for: Tenderness, Distention Upper Extremity: Positive for: Normal Inspection, Other Lower Extremity: Negative for: Edema Neurological: Positive for: Other (Gaze to left side, corneal reflex intact, 5/ 5 strength to LUE and LLE, 0/5 stength to RUE and 1/5 RLE, pupils reactive to light ) Skin: Positive for: Warm, Dry Psychiatric: Positive for: Alert, Other (somnolent at times) - Medications Active Medications: Active Medications Generic Name Dose Route Start Last Admin Trade Name Freq PRN Reason Stop Dose Admin Albuterol Sulfate 1.25 mg 07/05/16 19:54 07/05/16 20:07 Albuterol 0.042% Inhal Jennifer (1.25mg/3ml) Ud INH 1.25 mg RQ4 PRN Administration Wheezing Aspirin 81 mg 07/08/16 10:00 07/09/16 09:43 Aspirin Chewable PO 81 mg DAILY [facility] Administration Carvedilol 3.125 mg 07/09/16 10:15 07/09/16 11:27 Coreg PO 3.125 mg BID [facility] Administration Clopidogrel Bisulfate 75 mg 07/07/16 10:00 07/09/16 09:43 Plavix PO 75 mg DAILY [facility] Administration Diltiazem HCl 30 mg 07/08/16 10:00 07/09/16 13:35 Cardizem PO 30 mg QID [facility] Administration Enoxaparin Sodium 85 mg 07/07/16 23:45 07/09/16 09:43 Lovenox SC 85 mg Q12 [facility] Administration Famotidine 20 mg 07/07/16 10:00 07/09/16 09:42 Pepcid PO 20 mg BID [facility] Administration Potassium Phosphate 15 mmole/ 255 mls @ 42.5 mls/hr 07/09/16 10:03 07/09/16 11: 41 Dextrose IVPB 07/09/16 16:02 42.5 mls/hr ONCE ONE Administration Lisinopril 20 mg 07/08/16 10:00 07/09/16 09:43 Zestril PO 20 mg DAILY [facility] Administration Rosuvastatin Calcium 20 mg 07/05/16 22:00 07/08/16 21:51 Crestor PO 20 mg HS [facility] Administration - Patient Studies Lab Studies: Lab Studies 07/09/16 Range/Units 06:20 WBC 10.3 (4.8-10.8) K/uL RBC 4.31 (3.80-5.20) Mil/uL Hgb 12.7 (11.0-16.0) g/dL Hct 37.0 (34.0-47.0) % MCV 85.8 (81.0-99.0) fL MCH 29.5 (27.0-31.0) pg MCHC 34.3 (33.0-37.0) g/dL RDW 15.4 H (11.5-14.5) % Plt Count 213 (130-400) K/uL MPV 10.1 (7.2-11.7) fL Neut % (Auto) 75.2 H (50.0-75.0) % Lymph % (Auto) 13.8 L (20.0-40.0) % Baldwin % (Auto) 7.6 (0.0-10.0) % Eos % (Auto) 2.9 (0.0-4.0) % Baso % (Auto) 0.5 (0.0-2.0) % Neut # 7.7 H (1.8-7.0) K/uL Lymph # 1.4 (1.0-4.3) K/uL Baldwin # 0.8 (0.0-0.8) K/uL Eos # 0.3 (0.0-0.7) K/uL Baso # 0.1 (0.0-0.2) K/uL Sodium 138 (132-148) mmol/L Potassium 3.5 L (3.6-5.2) mmol/L Chloride 100 (98-107) mmol/L Carbon Dioxide 28 (22-30) mmol/L Anion Gap 14 (10-20) BUN 19 H (7-17) mg/dL Creatinine 0.5 L (0.7-1.2) MG/DL Est GFR ( Amer) > 60 Est GFR (Non-Af Amer) > 60 Random Glucose 126 H (65-105) mg/dL Calcium 8.0 L (8.6-10.4) mg/dl Phosphorus 2.4 L (2.5-4.5) mg/dL Magnesium 1.8 (1.6-2.3) mg/dL Total Bilirubin 0.7 (0.2-1.3) mg/dL AST 23 (14-36) U/L ALT 35 (9-52) U/L Alkaline Phosphatase 89 (38-126) U/L Total Protein 6.1 L (6.3-8.3) g/dL Albumin 3.0 L (3.5-5.0) g/dL Globulin 3.1 (2.2-3.9) gm/dL Albumin/Globulin Ratio 1.0 (1.0-2.1) Laboratory Results - last 24 hr 07/09/16 06:20 WBC 10.3 RBC 4.31 Hgb 12.7 Hct 37.0 MCV 85.8 MCH 29.5 MCHC 34.3 RDW 15.4 H Plt Count 213 MPV 10.1 Neut % (Auto) 75.2 H Lymph % (Auto) 13.8 L Baldwin % (Auto) 7.6 Eos % (Auto) 2.9 Baso % (Auto) 0.5 Neut # 7.7 H Lymph # 1.4 Baldwin # 0.8 Eos # 0.3 Baso # 0.1 Sodium 138 Potassium 3.5 L Chloride 100 Carbon Dioxide 28 Anion Gap 14 BUN 19 H Creatinine 0.5 L Est GFR ( Amer) > 60 Est GFR (Non-Af Amer) > 60 Random Glucose 126 H Calcium 8.0 L Phosphorus 2.4 L Magnesium 1.8 Total Bilirubin 0.7 AST 23 ALT 35 Alkaline Phosphatase 89 Total Protein 6.1 L Albumin 3.0 L Globulin 3.1 Albumin/Globulin Ratio 1.0 Fingerstick Blood Sugar Results: 121 Review of Systems - Review of Systems Systems not reviewed;Unavailable: Language Barrier - Constitutional Constitutional: absent: Fever, Chills - EENT Eyes: As Per HPI Nose/Mouth/Throat: As Per HPI - Cardiovascular Cardiovascular: As Per HPI. absent: Chest Pain, Chest Pain at Rest - Respiratory Respiratory: As Per HPI. absent: Wheezing - Gastrointestinal Gastrointestinal: As Per HPI. absent: Nausea, Vomiting - Genitourinary Genitourinary: As Per HPI - Musculoskeletal Musculoskeletal: absent: Arthralgias, Back Pain - Integumentary Integumentary: Dry Skin - Neurological Neurological: As Per HPI - Psychiatric Psychiatric: As Per HPI Critical Care Progress Note - Ventilator Checklist PUD Prophalyxis: Yes DVT Prophylaxis: Yes - Prophylaxis GI Prophylaxis GI: Pepsid - Prophylaxis DVT Prophylaxis DVT: Lovenox, SCDs - Nutrition Nutrition: Nutrition Category Date Time Status Pureed [Dysphagia/Modified Consistency Diet] [DIET] Diets 07/09/16 Lunch Active Assessment/Plan - Assessment and Plan (Free Text) Assessment: Patient is a 76 yo F with hemiplegia secondary to left MCA stroke with a past medical history of COPD, HTN, CAD with stent placement in 2006. Patient passed swallow eval to begin puree diet with thickened liquids in addition to tube feeds. Patient to be transferred to telemetry floor today. Plan: Neuro: Positive Babinski on right; global aphasia Pt displays 0/5 strength to Right upper extremity; 1/5 strength to Right lower extremity; 5/5 strength to Left upper and lower extremities MRI performed- F/U final read. management per primary 07/09/[address] See - Speech and swallow eval. If patient fails, eval by GI for possible PEG placement. MRI to assess progression of stroke. Continue with present management 07/06/[address] See - continue antiplatelet with RODNEY-I. CT head repeat. EEG to rule out paroxysmal activities or focal slowing Imaging 07/06/16 CT Head: new/enlarging focal left frontal hypodensity, acute/subacute infarct. MRI may be helpful for further eval. New/enlarging posterior left frontal parietal cortical hypodensity. Age intdeterminate subacute/acute infarct. MRI may be helpful for further eval. 07/05/16 EEG - persistent slowing throughout the record suggestive of bilateral cerebral dysfunction. Secondary to metabolic vascular or degenerative process. Cardio: Hypertension History of CAD s/p stent placement 07/05/16 Echo - Normal LVH and mild LVH. advanced diastolic dysfunction. elevated LA pressure. moderate pulmonary HTN. Moderate aortic regurgitation ASA 81 mg PO daily Afib heart rate better controlled in 90's -100 Coreg 3.125 mg PO BID Diltiazem 30 mg PO QID Lisinopril 20 mg PO daily Rosuvastatin 20 mg PO HS Will defer to primary for management of anticoagulation for atrial fib- refer to Dr. Amezquita's note Pulm: History of COPD Saturating well maintain O2 sat >92% Albuterol 1.25 mg INH RQ4 PRN GI: Swallow Eval - passed. Diet advanced to pureed feeds with thickened liquids. Patient to continue tube feeds as well due to poor intake. DC IV fluids and free water fluids Heme: H&H: 12.7/37.0 Platelets 213 Monitor Endo: Glucose 126 Maintain euglycemia Renal: BUN/Cr: 19/0.5 Hypokalemia - repleted Hypophosphatemia - repleted Monitor Electrolytes : almodovar catheter in place UA- negative Monitor UO MSK/Integument: monitor for skin breakdown monitor for changes in muscle strength Turn Q2H Prophylaxis: GI: Pepcid 20 mg PO BID DVT: Lovenox 85 mg SC Q12, Clopidogrel 75 mg PO daily
--- NOTE | 2016-07-09 15:22 | CP.PCM.PN ---
Subjective - Date & Time of Evaluation Date of Evaluation: 07/09/16 Time of Evaluation: 15:20 - Subjective Subjective: 75 y/o female presents to the ED 07/05/16: with altered mental status. History per family. Pt last seen well at 1500. Pt was then found on floor unable to speak or walk at 1545. * History CAD cardiac stent 2007 negative stress test 01/2016 * Positive vasodepressor TILT Table 02/2016 * Moderate Carotid artery disease * Chronic smoker refuses to quit * Normal LV systolic function by outpatient echo 2015 * HTN and COPD. Dx'd with acute CVA Remains Aphasic, RUE weakness, RLE weakness, facial droop: Follows simple commands Also noted to be new onset AFIB on TELE strips: Initial admission EKG was NSR, no acute ischemic changes Objective - Vital Signs/Intake and Output Vital Signs (last 24 hours): Temp Pulse Resp BP Pulse Ox 98.4 F 122 H 21 131/83 96 07/09/16 12:00 07/09/16 14:35 07/09/16 14:35 07/09/16 14:55 07/09/16 14:35 Intake and Output: 07/09/16 07/09/16 06:59 18:59 Intake Total 2240 830 Output Total 445 375 Balance 1795 455 - Medications Medications: Current Medications Albuterol Sulfate (Albuterol 0.042% Inhal Jennifer (1.25mg/3ml) Ud) 1.25 mg INH RQ4 PRN PRN Reason: Wheezing Last Admin: 07/05/16 20:07 Dose: 1.25 mg Aspirin (Aspirin Chewable) 81 mg PO DAILY [facility] Last Admin: 07/09/16 09:43 Dose: 81 mg Carvedilol (Coreg) 3.125 mg PO BID [facility] Last Admin: 07/09/16 11:27 Dose: 3.125 mg Clopidogrel Bisulfate (Plavix) 75 mg PO DAILY [facility] Last Admin: 07/09/16 09:43 Dose: 75 mg Diltiazem HCl (Cardizem) 30 mg PO QID [facility] Last Admin: 07/09/16 13:35 Dose: 30 mg Enoxaparin Sodium (Lovenox) 85 mg SC Q12 [facility] Last Admin: 07/09/16 09:43 Dose: 85 mg Famotidine (Pepcid) 20 mg PO BID [facility] Last Admin: 07/09/16 09:42 Dose: 20 mg Potassium Phosphate 15 mmole/ (Dextrose) 255 mls @ 42.5 mls/hr IVPB ONCE ONE Stop: 07/09/16 16:02 Last Admin: 07/09/16 11:41 Dose: 42.5 mls/hr Lisinopril (Zestril) 20 mg PO DAILY [facility] Last Admin: 07/09/16 09:43 Dose: 20 mg Rosuvastatin Calcium (Crestor) 20 mg PO HS [facility] Last Admin: 07/08/16 21:51 Dose: 20 mg - Labs Labs: 07/09/16 06:20 07/09/16 06:20 PT 12.6 SECONDS (9.7-12.2) H 07/06/16 06:11 INR 1.1 07/06/16 06:11 APTT 28 SECONDS (21-34) 07/06/16 06:11 - Constitutional Appears: Older Than Stated Age - Head Exam Head Exam: ATRAUMATIC, NORMAL INSPECTION, NORMOCEPHALIC - Eye Exam Eye Exam: EOMI, Normal appearance - ENT Exam ENT Exam: Mucous Membranes Moist, Normal Oropharynx - Neck Exam Neck Exam: absent: Thyromegaly - Respiratory Exam Respiratory Exam: Clear to Ausculation Bilateral, NORMAL BREATHING PATTERN. absent: Rhonchi, Wheezes - Cardiovascular Exam Cardiovascular Exam: REGULAR RHYTHM, +S1, +S2. absent: Murmur - Extremities Exam Extremities Exam: Normal Inspection. absent: Calf Tenderness, Pedal Edema - Neurological Exam Neurological Exam: Altered Neuro motor strength exam: Left Upper Extremity: 4, Right Upper Extremity: 0, Left Lower Extremity: 4, Right Lower Extremity: 3 - Skin Skin Exam: Normal Color, Warm Assessment and Plan - Assessment and Plan (Free Text) Assessment: ACUTE CVA: * Head CT: 07/05/16: Negative * head CT: 07/06/16: Focal left frontal and postero-frontal hypodensity suggesting acute/cubacute infarct * Carotid: 07/05/16: mild-mod MARY disease * Echo; 07/05/16: LVH, Grade 3 DD, normal LVEF and wall motion, mod AI P. AFIB: Chronic smoker Non-obstructive Carotid disease HTN CAD s/p STENT 2007 Plan: Both coreg and cardizem are low doses * Suggest Use BETA-Ad (metoprolol or coreg) and titrate to control HR * Suggest digoxin 0,25 qday for addtional rate control * Most importantly: Patient needs anticoagulation given AFIB and possibly will need MARÍA ELENA and cardioversion.....This will need to be cleared by neurology as to timing of anticoagulation * Cont DAPT for now * MRI has been ordered.
--- NOTE | 2016-07-09 17:59 | MRI ---
PROCEDURE: MRI BRAIN WITHOUT CONTRAST HISTORY: left mca stroke COMPARISON: Comparison is made to the previous study dated 07/05/2016 TECHNIQUE: Multiplanar, multisequence MR images of the brain were obtained without intravenous contrast enhancement. FINDINGS: HEMORRHAGE: That T1 images are markedly limited due to patient motion. No definite evidence of hematoma in the T2 GRE images. Symmetrical foci of hypointense T2 GRE seen in the basal ganglia bilaterally corresponding to the foci of calcifications seen in the previous CT. DWI: There is moderate to large area of diffusion restriction at the left temporal frontal parietal lobe consistent with acute/an early subacute left MCA territory infarct. BRAIN PARENCHYMA: Mild edema surrounding the above-mentioned left brain infarct associated with slight mass effect on the left lateral ventricle. Mild atrophy and moderate to extensive white matter changes are again seen. VENTRICLES: Unremarkable. No hydrocephalus. CRANIUM: Unremarkable. ORBITS: Grossly unremarkable. PARANASAL SINUSES/MASTOIDS: Clear VASCULAR SYSTEM: Skull base flow voids intact. OTHER FINDINGS: None. IMPRESSION: Limited study due to patient motion. [id number] size foci of diffusion restriction at the left brain consistent with acute/ subacute left MCA territory infarct. Atrophy and chronic microvascular white matter ischemic disease.
[2016-07-10 07:23] LABS: BASO # 0.1 K/uL (0.0-0.2); EOS # 0.3 K/uL (0.0-0.7); EOS % 2.8 % (0.0-4.0); HEMATOCRIT 39.3 % (34.0-47.0); LYMPH # 1.4 K/uL (1.0-4.3); LYMPH % 13.3 % (20.0-40.0); MEAN CELL VOLUME 86.4 fL (81.0-99.0); MEAN CORPUSCULAR HGB CONC 33.6 g/dL (33.0-37.0); MEAN PLATELET VOLUME 9.6 fL (7.2-11.7); MONO % 8.9 % (0.0-10.0); RED CELL DISTRIBUTION WIDTH 15.3 % (11.5-14.5); WHITE BLOOD COUNT 10.7 K/uL (4.8-10.8)
[2016-07-10 07:50] LABS: CHLORIDE 100 mmol/L (98-107); POTASSIUM 3.7 mmol/L (3.6-5.2); SODIUM 140 mmol/L (132-148)
[2016-07-10 07:52] LABS: ALB/GLOB RATIO 1.1 (1.0-2.1); ALKALINE PHOSPHATASE 96 U/L (38-126); AST/SGOT 22 U/L (14-36); BILIRUBIN,TOTAL 0.5 mg/dL (0.2-1.3); BLOOD UREA NITROGEN 18 mg/dL (7-17); CARBON DIOXIDE 27 mmol/L (22-30); GFR AFRICAN-AMERICAN > 60; TOTAL PROTEIN 6.2 g/dL (6.3-8.3)
[2016-07-10 07:53] LABS: ALT/SGPT 27 U/L (9-52); CALCIUM 8.5 mg/dl (8.6-10.4); GLUCOSE,RANDOM 133 mg/dL (65-105); MAGNESIUM 1.9 mg/dL (1.6-2.3); PHOSPHOROUS 3.2 mg/dL (2.5-4.5)
--- NOTE | 2016-07-10 09:07 | CP.PCM.PN ---
<Tung Castillo H - Last Filed: 07/10/16 16:13> Subjective - Date & Time of Evaluation Date of Evaluation: 07/10/16 Time of Evaluation: 10:45 - Subjective Subjective: Patient is seen and examined in room. She is non verbal and but is awake and alert. She has a ng tube in place. Objective - Vital Signs/Intake and Output Vital Signs (last 24 hours): Temp Pulse Resp BP Pulse Ox 97.4 F L 112 H 18 189/91 H 94 L 07/10/16 08:38 07/10/16 08:38 07/10/16 08:38 07/10/16 08:38 07/10/16 08:38 Intake and Output: 07/10/16 07/10/16 06:59 18:59 Intake Total 920 Output Total 1100 Balance -180 - Medications Medications: Current Medications Albuterol Sulfate (Albuterol 0.042% Inhal Jennifer (1.25mg/3ml) Ud) 1.25 mg INH RQ4 PRN PRN Reason: Wheezing Last Admin: 07/05/16 20:07 Dose: 1.25 mg Aspirin (Aspirin Chewable) 81 mg PO DAILY [facility] Last Admin: 07/09/16 09:43 Dose: 81 mg Carvedilol (Coreg) 3.125 mg PO BID [facility] Last Admin: 07/09/16 21:17 Dose: 3.125 mg Clopidogrel Bisulfate (Plavix) 75 mg PO DAILY [facility] Last Admin: 07/09/16 09:43 Dose: 75 mg Diltiazem HCl (Cardizem) 30 mg PO QID [facility] Last Admin: 07/09/16 22:16 Dose: 30 mg Enoxaparin Sodium (Lovenox) 85 mg SC Q12 [facility] Last Admin: 07/09/16 22:15 Dose: 85 mg Famotidine (Pepcid) 20 mg PO BID [facility] Last Admin: 07/09/16 18:36 Dose: 20 mg Lisinopril (Zestril) 20 mg PO DAILY [facility] Last Admin: 07/09/16 09:43 Dose: 20 mg Rosuvastatin Calcium (Crestor) 20 mg PO HS [facility] Last Admin: 07/09/16 22:16 Dose: 20 mg - Labs Labs: 07/10/16 07:18 07/10/16 07:18 PT 12.6 SECONDS (9.7-12.2) H 07/06/16 06:11 INR 1.1 07/06/16 06:11 APTT 28 SECONDS (21-34) 07/06/16 06:11 - Constitutional Appears: Non-toxic, No Acute Distress - Head Exam Head Exam: ATRAUMATIC, NORMAL INSPECTION - Eye Exam Eye Exam: Normal appearance - Respiratory Exam Respiratory Exam: Clear to Ausculation Bilateral. absent: Rales, Rhonchi, Wheezes - Cardiovascular Exam Cardiovascular Exam: REGULAR RHYTHM, RRR, +S1, +S2. absent: Gallop, Rubs - GI/Abdominal Exam GI & Abdominal Exam: Soft - Extremities Exam Extremities Exam: Normal Inspection. absent: Pedal Edema - Skin Skin Exam: Warm Assessment and Plan (1) CVA (cerebral vascular accident) Assessment & Plan: Patient is on Aspirin, Plavix, and Crestor. She has NG tube in place. MRI of brain without contrast on 07/09 shows: Patient had swallow study. [id number]-[id number] size foci of diffusion restriction at the left brain consistent with acute/ subacute left MCA territory infarct. She is now on theraputic nectar thick liquids but will continue tube feeding. Will need to follow up Neurology consult, help appreciated. Status: Acute (2) New onset a-fib Assessment & Plan: Follow up cardiology consult. continue theraputic Lovenox at 85mg SC BID and Cardizem for rate control. Patient will most likely need fdc oral anticoagulation. Status: Acute (3) Hypertension Assessment & Plan: Continue Coreg and Zestril and to monitor patient on tele monitor. Status: Acute (4) Prophylactic measure Assessment & Plan: pepcid 20mg HS Patient on anticoagulation therapy. Status: Acute <Acacia Burns S - Last Filed: 07/10/16 21:57> Objective - Vital Signs/Intake and Output Vital Signs (last 24 hours): Temp Pulse Resp BP Pulse Ox 98.9 F 119 H 20 177/68 H 100 07/10/16 15:56 07/10/16 15:56 07/10/16 15:56 07/10/16 15:56 07/10/16 15:56 Intake and Output: 07/10/16 07/11/16 18:59 06:59 Intake Total 375 Output Total 1 Balance 374 - Medications Medications: Current Medications Aspirin (Aspirin Chewable) 81 mg PO DAILY [facility] Last Admin: 07/10/16 09:47 Dose: 81 mg Carvedilol (Coreg) 3.125 mg PO BID [facility] Last Admin: 07/10/16 18:02 Dose: 3.125 mg Clopidogrel Bisulfate (Plavix) 75 mg PO DAILY [facility] Last Admin: 07/10/16 09:49 Dose: 75 mg Diltiazem HCl (Cardizem) 30 mg PO QID [facility] Last Admin: 07/10/16 18:01 Dose: 30 mg Enoxaparin Sodium (Lovenox) 85 mg SC Q12 [facility] Last Admin: 07/10/16 09:48 Dose: 85 mg Famotidine (Pepcid) 20 mg PO BID [facility] Last Admin: 07/10/16 18:02 Dose: 20 mg Lisinopril (Zestril) 20 mg PO DAILY [facility] Last Admin: 07/10/16 09:49 Dose: 20 mg Rosuvastatin Calcium (Crestor) 20 mg PO HS [facility] Last Admin: 07/09/16 22:16 Dose: 20 mg - Labs Labs: 07/10/16 07:18 07/10/16 07:18 PT 12.6 SECONDS (9.7-12.2) H 07/06/16 06:11 INR 1.1 07/06/16 06:11 APTT 28 SECONDS (21-34) 07/06/16 06:11 Attending/Attestation - Attestation I have personally seen and examined this patient.: Yes I have fully participated in the care of the patient.: Yes I have reviewed all pertinent clinical information, including history, physical exam and plan: Yes Notes (Text): 07/10/16 21:57 case seen and discussed with staff and resident
[2016-07-10] MEDS: Enoxaparin 100 mg Syringe SC SCH ×2 (09:48→22:12)
--- NOTE | 2016-07-10 22:00 | CP.PCM.PN ---
Subjective - Date & Time of Evaluation Date of Evaluation: 07/10/16 Objective - Vital Signs/Intake and Output Vital Signs (last 24 hours): Temp Pulse Resp BP Pulse Ox 98.9 F 119 H 20 177/68 H 100 07/10/16 15:56 07/10/16 15:56 07/10/16 15:56 07/10/16 15:56 07/10/16 15:56 Intake and Output: 07/10/16 07/11/16 18:59 06:59 Intake Total 375 Output Total 1 Balance 374 - Medications Medications: Current Medications Aspirin (Aspirin Chewable) 81 mg PO DAILY [facility] Last Admin: 07/10/16 09:47 Dose: 81 mg Carvedilol (Coreg) 3.125 mg PO BID [facility] Last Admin: 07/10/16 18:02 Dose: 3.125 mg Clopidogrel Bisulfate (Plavix) 75 mg PO DAILY [facility] Last Admin: 07/10/16 09:49 Dose: 75 mg Diltiazem HCl (Cardizem) 30 mg PO QID [facility] Last Admin: 07/10/16 18:01 Dose: 30 mg Enoxaparin Sodium (Lovenox) 85 mg SC Q12 [facility] Last Admin: 07/10/16 09:48 Dose: 85 mg Famotidine (Pepcid) 20 mg PO BID [facility] Last Admin: 07/10/16 18:02 Dose: 20 mg Lisinopril (Zestril) 20 mg PO DAILY [facility] Last Admin: 07/10/16 09:49 Dose: 20 mg Rosuvastatin Calcium (Crestor) 20 mg PO HS [facility] Last Admin: 07/09/16 22:16 Dose: 20 mg - Labs Labs: 07/10/16 07:18 07/10/16 07:18 PT 12.6 SECONDS (9.7-12.2) H 07/06/16 06:11 INR 1.1 07/06/16 06:11 APTT 28 SECONDS (21-34) 07/06/16 06:11
[2016-07-11 07:19] LABS: BASO % 0.3 % (0.0-2.0); EOS # 0.4 K/uL (0.0-0.7); EOS % 3.9 % (0.0-4.0); HEMATOCRIT 38.4 % (34.0-47.0); LYMPH # 1.6 K/uL (1.0-4.3); LYMPH % 14.9 % (20.0-40.0); MEAN CELL VOLUME 85.9 fL (81.0-99.0); MEAN CORPUSCULAR HEMOGLOBIN 29.5 pg (27.0-31.0); MEAN CORPUSCULAR HGB CONC 34.4 g/dL (33.0-37.0); MEAN PLATELET VOLUME 9.6 fL (7.2-11.7); MONO % 9.2 % (0.0-10.0); NRBC % 0.1 % (0.0-2.0); RED CELL DISTRIBUTION WIDTH 15.2 % (11.5-14.5); WHITE BLOOD COUNT 10.8 K/uL (4.8-10.8)
[2016-07-11 07:26] LABS: CHLORIDE 100 mmol/L (98-107)
[2016-07-11 07:27] LABS: SODIUM 139 mmol/L (132-148)
[2016-07-11 07:28] LABS: POTASSIUM 3.7 mmol/L (3.6-5.2)
[2016-07-11 07:30] LABS: ALB/GLOB RATIO 1.1 (1.0-2.1); ALKALINE PHOSPHATASE 91 U/L (38-126); ALT/SGPT 33 U/L (9-52); AST/SGOT 27 U/L (14-36); BILIRUBIN,TOTAL 0.4 mg/dL (0.2-1.3); BLOOD UREA NITROGEN 22 mg/dL (7-17); CARBON DIOXIDE 28 mmol/L (22-30); GFR AFRICAN-AMERICAN > 60; GLUCOSE,RANDOM 129 mg/dL (65-105)
[2016-07-11 07:31] LABS: CALCIUM 8.8 mg/dl (8.6-10.4); MAGNESIUM 1.9 mg/dL (1.6-2.3); PHOSPHOROUS 3.5 mg/dL (2.5-4.5)
--- NOTE | 2016-07-11 09:01 | RAD ---
HISTORY: NG tube placement COMPARISON: 07/05/2016. FINDINGS: LUNGS: Minimal hazy opacities in the lung bases. PLEURA: No significant pleural effusion identified, no pneumothorax apparent. CARDIOVASCULAR: Stable enlarged cardiomediastinal silhouette. OSSEOUS STRUCTURES: The osseous structures demonstrate degenerative changes. VISUALIZED UPPER ABDOMEN: Upper abdomen is suboptimally evaluated. OTHER FINDINGS: Interval introduction of feeding tube with the distal tip not seen however coursing below the diaphragm. IMPRESSION: Interval introduction of feeding tube with the distal tip not seen, however coursing below the diaphragm.
--- NOTE | 2016-07-11 09:33 | CP.PCM.PN ---
Subjective - Date & Time of Evaluation Date of Evaluation: 07/11/16 Time of Evaluation: 09:30 - Subjective Subjective: Clinically more alert Non-verbal/aphasic AFIB RVR on TELE Objective - Vital Signs/Intake and Output Vital Signs (last 24 hours): Temp Pulse Resp BP Pulse Ox 98.8 F 122 H 20 138/83 95 07/11/16 08:32 07/11/16 08:32 07/11/16 08:32 07/11/16 08:32 07/11/16 08:32 Intake and Output: 07/11/16 07/11/16 06:59 18:59 Intake Total 854 Output Total 750 Balance 104 - Medications Medications: Current Medications Aspirin (Aspirin Chewable) 81 mg PO DAILY [facility] Last Admin: 07/10/16 09:47 Dose: 81 mg Carvedilol (Coreg) 3.125 mg PO BID [facility] Last Admin: 07/10/16 18:02 Dose: 3.125 mg Clopidogrel Bisulfate (Plavix) 75 mg PO DAILY [facility] Last Admin: 07/10/16 09:49 Dose: 75 mg Diltiazem HCl (Cardizem) 30 mg PO QID [facility] Last Admin: 07/10/16 22:00 Dose: Not Given Famotidine (Pepcid) 20 mg PO BID [facility] Last Admin: 07/10/16 18:02 Dose: 20 mg Lisinopril (Zestril) 20 mg PO DAILY [facility] Last Admin: 07/10/16 09:49 Dose: 20 mg Rosuvastatin Calcium (Crestor) 20 mg PO HS [facility] Last Admin: 07/10/16 22:00 Dose: Not Given - Labs Labs: 07/11/16 07:05 07/11/16 07:05 PT 12.6 SECONDS (9.7-12.2) H 07/06/16 06:11 INR 1.1 07/06/16 06:11 APTT 28 SECONDS (21-34) 07/06/16 06:11 - Constitutional Appears: No Acute Distress, Older Than Stated Age, Chronically Ill - Head Exam Head Exam: ATRAUMATIC, NORMAL INSPECTION, NORMOCEPHALIC - Eye Exam Eye Exam: EOMI, Normal appearance - ENT Exam ENT Exam: Mucous Membranes Moist, Normal Oropharynx - Neck Exam Neck Exam: Full ROM. absent: Tenderness - Respiratory Exam Respiratory Exam: Rhonchi (scattered), NORMAL BREATHING PATTERN. absent: Wheezes, Respiratory Distress - Cardiovascular Exam Cardiovascular Exam: Irregular Rhythm, +S1, +S2. absent: Murmur - GI/Abdominal Exam GI & Abdominal Exam: Soft, Normal Bowel Sounds. absent: Tenderness - Neurological Exam Neurological Exam: Altered, Awake Neuro motor strength exam: Left Upper Extremity: 5, Right Upper Extremity: 2/1, Left Lower Extremity: 5, Right Lower Extremity: 4 - Skin Skin Exam: Normal Color, Warm Assessment and Plan - Assessment and Plan (Free Text) Assessment: ACUTE CVA: * Head CT: 07/05/16: Negative * head CT: 07/06/16: Focal left frontal and postero-frontal hypodensity suggesting acute/cubacute infarct * MRI: L. frontal, temporal, pariatal CVA * Carotid: 07/05/16: mild-mod MARY disease * Echo; 07/05/16: LVH, Grade 3 DD, normal LVEF and wall motion, mod AI P. AFIB: Chronic smoker Non-obstructive Carotid disease HTN CAD s/p STENT 2007 Plan: Both coreg and cardizem are low doses * Suggest Use BETA-Ad (metoprolol or coreg) and titrate to control HR * Suggest digoxin load 0.5IV x1 then 0.25 qday for addtional rate control, and keep BP 110-140s * Most importantly: Patient needs anticoagulation given AFIB and possibly will need MARÍA ELENA and cardioversion.....This will need to be cleared by neurology as to timing of anticoagulation * Cont DAPT for now * MRI noted
[2016-07-11] MEDS ORDERED: SODIUM CHLORIDE 0.9% IV ONE (09:36)
[2016-07-11] MEDS ORDERED: DIGOXIN IMMUNE FAB IV ONE (09:36)
[2016-07-11] MEDS ORDERED: Digoxin 500 mcg/2ml (0.5 mg/2ml) Inj IVP ONE (10:00)
--- NOTE | 2016-07-11 11:12 | CP.PCM.PN ---
Subjective - Date & Time of Evaluation Date of Evaluation: 07/11/16 Time of Evaluation: 07:30 - Subjective Subjective: PGY2 Medicine Note - Dr. Kannan Burns's Service: Patient seen and examined at bedside this AM. Patient nonverbal. Patient understands some commands. Patient is awake and alert. Objective - Vital Signs/Intake and Output Vital Signs (last 24 hours): Temp Pulse Resp BP Pulse Ox 98.8 F 122 H 20 138/83 95 07/11/16 08:32 07/11/16 08:32 07/11/16 08:32 07/11/16 08:32 07/11/16 08:32 Intake and Output: 07/11/16 07/11/16 06:59 18:59 Intake Total 854 Output Total 750 Balance 104 - Medications Medications: Current Medications Aspirin (Aspirin Chewable) 81 mg PO DAILY [facility] Last Admin: 07/11/16 10:48 Dose: 81 mg Carvedilol (Coreg) 6.25 mg PO BID [facility] Carvedilol (Coreg) 3.125 mg PO STAT [facility] Stop: 07/11/16 11:01 Clopidogrel Bisulfate (Plavix) 75 mg PO DAILY [facility] Last Admin: 07/11/16 10:48 Dose: 75 mg Digoxin (Lanoxin) 0.25 mg PO DAILY@1800 [facility] Diltiazem HCl (Cardizem) 30 mg PO QID [facility] Last Admin: 07/11/16 10:59 Dose: 30 mg Famotidine (Pepcid) 20 mg PO BID [facility] Last Admin: 07/11/16 10:48 Dose: 20 mg Lisinopril (Zestril) 20 mg PO DAILY [facility] Last Admin: 07/11/16 10:59 Dose: 20 mg Rosuvastatin Calcium (Crestor) 20 mg PO [facility] Last Admin: 07/10/16 22:00 Dose: Not Given - Labs Labs: 07/11/16 07:05 07/11/16 07:05 PT 12.6 SECONDS (9.7-12.2) H 07/06/16 06:11 INR 1.1 07/06/16 06:11 APTT 28 SECONDS (21-34) 07/06/16 06:11 - Constitutional Appears: Non-toxic, No Acute Distress, Chronically Ill - Head Exam Head Exam: NORMAL INSPECTION - Eye Exam Eye Exam: Normal appearance - ENT Exam ENT Exam: Mucous Membranes Moist - Respiratory Exam Respiratory Exam: Clear to Ausculation Bilateral, NORMAL BREATHING PATTERN. absent: Rales, Rhonchi, Wheezes - Cardiovascular Exam Cardiovascular Exam: REGULAR RHYTHM, +S1, +S2. absent: Gallop, Rubs - GI/Abdominal Exam GI & Abdominal Exam: Soft, Normal Bowel Sounds. absent: Tenderness - Extremities Exam Extremities Exam: absent: Pedal Edema - Neurological Exam Neurological Exam: Alert, Awake - Skin Skin Exam: Normal Color, Warm Assessment and Plan - Assessment and Plan (Free Text) Assessment: (1) CVA (cerebral vascular accident) Assessment & Plan: Neuro consult - Dr. See - help appreciated Patient is on Aspirin, Plavix, and Crestor. She has NG tube in place. MRI of brain without contrast on 07/09 shows: [id number] size foci of diffusion restriction at the left brain consistent with acute/ subacute left MCA territory infarct. She is now on theraputic nectar thick liquids but will continue tube feeding. Will need to follow up Neurology consult, help appreciated. Patient had swallow study. Status: Acute (2) New onset a-fib Assessment & Plan: Cardiology consult - Dr. Amezquita - help appreciated Patient needs rate control Digoxin 0.5mg IVP once today Digoxin 0.25mg IVP daily Coreg increased to 6.25mg BID from 3.125mg BID Patient will most likely need long term care social worker oral anticoagulation. No anticoagulation until 08/02/[address] See Status: Acute (3) Hypertension Assessment & Plan: Continue Coreg and Zestril and to monitor patient on tele monitor. Status: Acute (4) Prophylactic measure Assessment & Plan: pepcid 20mg HS Status: Acute
--- NOTE | 2016-07-11 15:10 | CP.PCM.PN ---
Subjective - Date & Time of Evaluation Date of Evaluation: 07/11/16 Time of Evaluation: 10:00 - Subjective Subjective: clinically same Objective - Vital Signs/Intake and Output Vital Signs (last 24 hours): Temp Pulse Resp BP Pulse Ox 98.8 F 122 H 20 138/83 95 07/11/16 08:32 07/11/16 08:32 07/11/16 08:32 07/11/16 08:32 07/11/16 08:32 Intake and Output: 07/11/16 07/11/16 06:59 18:59 Intake Total 854 Output Total 750 150 Balance 104 -150 - Medications Medications: Current Medications Aspirin (Aspirin Chewable) 81 mg PO DAILY [facility] Last Admin: 07/11/16 10:48 Dose: 81 mg Carvedilol (Coreg) 6.25 mg PO BID [facility] Clopidogrel Bisulfate (Plavix) 75 mg PO DAILY [facility] Last Admin: 07/11/16 10:48 Dose: 75 mg Digoxin (Lanoxin) 0.25 mg PO DAILY@1800 [facility] Diltiazem HCl (Cardizem) 30 mg PO QID [facility] Last Admin: 07/11/16 13:46 Dose: 30 mg Famotidine (Pepcid) 20 mg PO BID [facility] Last Admin: 07/11/16 10:48 Dose: 20 mg Lisinopril (Zestril) 20 mg PO DAILY [facility] Last Admin: 07/11/16 10:59 Dose: 20 mg Rosuvastatin Calcium (Crestor) 20 mg PO HS [facility] Last Admin: 07/10/16 22:00 Dose: Not Given - Labs Labs: 07/11/16 07:05 07/11/16 07:05 PT 12.6 SECONDS (9.7-12.2) H 07/06/16 06:11 INR 1.1 07/06/16 06:11 APTT 28 SECONDS (21-34) 07/06/16 06:11 - Constitutional Appears: Well - Head Exam Head Exam: ATRAUMATIC, NORMAL INSPECTION, NORMOCEPHALIC - Eye Exam Eye Exam: EOMI, Normal appearance, PERRL Pupil Exam: NORMAL ACCOMODATION, PERRL - ENT Exam ENT Exam: Mucous Membranes Moist, Normal Exam - Neck Exam Neck Exam: Full ROM, Normal Inspection. absent: Lymphadenopathy - Respiratory Exam Respiratory Exam: Decreased Breath Sounds - Cardiovascular Exam Cardiovascular Exam: REGULAR RHYTHM, +S1, +S2 - GI/Abdominal Exam GI & Abdominal Exam: Soft, Diminished Bowel Sounds - Rectal Exam Rectal Exam: Deferred
[2016-07-11] MEDS: Digoxin 250 mcg (0.25 mg) Tab PO SCH (17:30)
[2016-07-11 23:58] VITALS: RESP 20
[2016-07-12 07:11] LABS: BASO # 0.1 K/uL (0.0-0.2); BASO % 0.5 % (0.0-2.0); EOS # 0.3 K/uL (0.0-0.7); EOS % 2.6 % (0.0-4.0); HEMATOCRIT 37.8 % (34.0-47.0); LYMPH # 1.4 K/uL (1.0-4.3); LYMPH % 12.2 % (20.0-40.0); MEAN CELL VOLUME 85.5 fL (81.0-99.0); MEAN CORPUSCULAR HEMOGLOBIN 29.6 pg (27.0-31.0); MEAN CORPUSCULAR HGB CONC 34.6 g/dL (33.0-37.0); MEAN PLATELET VOLUME 9.8 fL (7.2-11.7); MONO # 0.9 K/uL (0.0-0.8); RED CELL DISTRIBUTION WIDTH 15.2 % (11.5-14.5); WHITE BLOOD COUNT 11.7 K/uL (4.8-10.8)
[2016-07-12 07:31] LABS: CHLORIDE 99 mmol/L (98-107)
[2016-07-12 07:32] LABS: POTASSIUM 3.8 mmol/L (3.6-5.2); SODIUM 140 mmol/L (132-148)
[2016-07-12 07:34] LABS: AST/SGOT 32 U/L (14-36); BILIRUBIN,TOTAL 0.5 mg/dL (0.2-1.3); CARBON DIOXIDE 27 mmol/L (22-30); GFR AFRICAN-AMERICAN > 60
[2016-07-12 07:35] LABS: ALB/GLOB RATIO 1.1 (1.0-2.1); ALKALINE PHOSPHATASE 90 U/L (38-126); ALT/SGPT 39 U/L (9-52); BLOOD UREA NITROGEN 27 mg/dL (7-17); CALCIUM 8.9 mg/dl (8.6-10.4); GLUCOSE,RANDOM 154 mg/dL (65-105); TOTAL PROTEIN 6.5 g/dL (6.3-8.3)
[2016-07-12 07:57] LABS: THYROID STIMULATING HORMONE 0.96 mIU/L (0.46-4.68)
--- NOTE | 2016-07-12 09:25 | CP.PCM.PN ---
Subjective - Date & Time of Evaluation Date of Evaluation: 07/12/16 Time of Evaluation: 09:23 - Subjective Subjective: Awake Follows simple commands RUE weakness Mumbles but cannot make words AFIB on TELE: rate is better Objective - Vital Signs/Intake and Output Vital Signs (last 24 hours): Temp Pulse Resp BP Pulse Ox 98.8 F 83 20 177/77 H 94 L 07/12/16 08:56 07/12/16 08:56 07/12/16 08:56 07/11/16 23:40 07/12/16 08:56 Intake and Output: 07/12/16 07/12/16 06:59 18:59 Intake Total 725 Output Total 550 Balance 175 - Medications Medications: Current Medications Aspirin (Aspirin Chewable) 81 mg PO DAILY [facility] Last Admin: 07/11/16 10:48 Dose: 81 mg Carvedilol (Coreg) 6.25 mg PO BID [facility] Last Admin: 07/11/16 17:29 Dose: 6.25 mg Clopidogrel Bisulfate (Plavix) 75 mg PO DAILY [facility] Last Admin: 07/11/16 10:48 Dose: 75 mg Digoxin (Lanoxin) 0.25 mg PO DAILY@1800 [facility] Last Admin: 07/11/16 17:30 Dose: 0.25 mg Diltiazem HCl (Cardizem) 30 mg PO QID [facility] Last Admin: 07/11/16 21:46 Dose: 30 mg Famotidine (Pepcid) 20 mg PO BID [facility] Last Admin: 07/11/16 17:31 Dose: 20 mg Lisinopril (Zestril) 20 mg PO DAILY [facility] Last Admin: 07/11/16 10:59 Dose: 20 mg Rosuvastatin Calcium (Crestor) 20 mg PO [facility] Last Admin: 07/11/16 21:46 Dose: 20 mg - Labs Labs: 07/12/16 06:46 07/12/16 06:46 PT 12.6 SECONDS (9.7-12.2) H 07/06/16 06:11 INR 1.1 07/06/16 06:11 APTT 28 SECONDS (21-34) 07/06/16 06:11 - Constitutional Appears: No Acute Distress, Older Than Stated Age - Head Exam Head Exam: ATRAUMATIC, NORMAL INSPECTION, NORMOCEPHALIC - Eye Exam Eye Exam: Normal appearance, PERRL Pupil Exam: PERRL - ENT Exam ENT Exam: Normal Oropharynx - Neck Exam Neck Exam: absent: Tenderness, Thyromegaly - Respiratory Exam Respiratory Exam: Clear to Ausculation Bilateral, NORMAL BREATHING PATTERN. absent: Rales, Rhonchi, Wheezes - Cardiovascular Exam Cardiovascular Exam: Irregular Rhythm, +S1, +S2. absent: Murmur - GI/Abdominal Exam GI & Abdominal Exam: Soft, Normal Bowel Sounds. absent: Tenderness, Organomegaly - Extremities Exam Extremities Exam: absent: Calf Tenderness, Pedal Edema - Neurological Exam Neurological Exam: Alert, Awake Neuro motor strength exam: Left Upper Extremity: 4, Right Upper Extremity: 0, Left Lower Extremity: 4 - Skin Skin Exam: Normal Color, Warm Assessment and Plan - Assessment and Plan (Free Text) Assessment: ACUTE CVA: * Head CT: 07/05/16: Negative * head CT: 07/06/16: Focal left frontal and postero-frontal hypodensity suggesting acute/cubacute infarct * MRI: L. frontal, temporal, pariatal CVA * Carotid: 07/05/16: mild-mod MARY disease * Echo; 07/05/16: LVH, Grade 3 DD, normal LVEF and wall motion, mod AI P. AFIB: Chronic smoker Non-obstructive Carotid disease HTN CAD s/p STENT 2007 Plan: Both coreg and cardizem are low doses * Suggest Use coreg and titrate to control HR and BP * cont Digoxin * Most importantly: Patient needs anticoagulation given AFIB and possibly will need MARÍA ELENA and cardioversion.....I have discussed with Dr. See; given extensive size of CVA risk of Hem conversion is high if NOAC or Heparin at this time: Suggest to wait 2-3 weeks and reconsider use. For that reason no MARÍA ELENA planned for now: can consider as outpatient after cleared for AC use. * Cont DAPT for now * MRI noted * PT/REHAB
--- NOTE | 2016-07-12 09:38 | PN ---
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 PHYSICAL EXAMINATION: VITAL SIGNS: Blood pressure 143/81 mmHg, O2 sat 100%, respiratory rate 20, temperature 97.9, with a pulse rate 110. NEUROLOGIC: The patient is more awake, alert, oriented to seems to be person. Visual cues normal. Visual field is intact. She was able to follow one-step command, easily copies the sign. Right side hemiplegia still there. She has some movement of the right upper extremity. RECOMMENDATIONS: Workup DVT prophylaxis. Continue with present management, out of bed and physical therapy should be entertained to stabilize her to go for acute rehabilitation. It was discussed Fan See MD cc: [id number] TT: 07/11/2016 07:40:41 Confirmation # [id number] Dictation # [id number]
--- NOTE | 2016-07-12 09:43 | PN ---
DATE: 07/12/2016 NEUROLOGICAL PROBLEM: Left LCA ischemic process manifesting with aphasia and right hemiparesis. PHYSICAL EXAMINATION: VITAL SIGNS: Blood pressure 177/77, mean heart rate at present 100, respiratory rate 16, pulse rate 103, irregular. NEUROLOGIC: The patient's examination is unchanged to compare with the previous examination. The pa leila is on aspirin and Plavix with digoxin. Considering her problem, I strongly recommended her to be on anticoagulant because of atrial fibrillation with embolic stroke. The patient's condition has been discussed with Dr. Amezquita. RECOMMENDATIONS: The patient will be scheduled to have a MARÍA ELENA to evaluate her atrial fibrillation. B ecause of the risk of hemorrhagic conversion that would be scheduled as an outpatient in 4-6 weeks fr om her time of stroke. Fan See MD cc: [id number] TT: 07/12/2016 08:47:58 Confirmation # [id number] Dictation # [id number] 07/12/2016 08:41:53
--- NOTE | 2016-07-12 10:54 | CP.PCM.PN ---
Subjective - Date & Time of Evaluation Date of Evaluation: 07/12/16 Time of Evaluation: 13:00 - Subjective Subjective: Dr. Burns service: patient seen and evaluated in room. She is non verbal but is comfortable, with her daughter in the room. Objective - Vital Signs/Intake and Output Vital Signs (last 24 hours): Temp Pulse Resp BP Pulse Ox 98.8 F 83 20 177/77 H 94 L 07/12/16 08:56 07/12/16 08:56 07/12/16 08:56 07/11/16 23:40 07/12/16 08:56 Intake and Output: 07/12/16 07/12/16 06:59 18:59 Intake Total 725 Output Total 550 Balance 175 - Medications Medications: Current Medications Aspirin (Aspirin Chewable) 81 mg PO DAILY [facility] Last Admin: 07/11/16 10:48 Dose: 81 mg Carvedilol (Coreg) 6.25 mg PO BID [facility] Last Admin: 07/11/16 17:29 Dose: 6.25 mg Clopidogrel Bisulfate (Plavix) 75 mg PO DAILY [facility] Last Admin: 07/11/16 10:48 Dose: 75 mg Digoxin (Lanoxin) 0.25 mg PO DAILY@1800 [facility] Last Admin: 07/11/16 17:30 Dose: 0.25 mg Diltiazem HCl (Cardizem) 30 mg PO QID [facility] Last Admin: 07/11/16 21:46 Dose: 30 mg Famotidine (Pepcid) 20 mg PO BID [facility] Last Admin: 07/11/16 17:31 Dose: 20 mg Lisinopril (Zestril) 20 mg PO DAILY [facility] Last Admin: 07/11/16 10:59 Dose: 20 mg Rosuvastatin Calcium (Crestor) 20 mg PO HS [facility] Last Admin: 07/11/16 21:46 Dose: 20 mg - Labs Labs: 07/12/16 06:46 07/12/16 06:46 PT 12.6 SECONDS (9.7-12.2) H 07/06/16 06:11 INR 1.1 07/06/16 06:11 APTT 28 SECONDS (21-34) 07/06/16 06:11 - Constitutional Appears: Non-toxic, No Acute Distress - Head Exam Head Exam: ATRAUMATIC, NORMAL INSPECTION, NORMOCEPHALIC - Eye Exam Eye Exam: Normal appearance, PERRL Pupil Exam: NORMAL ACCOMODATION - ENT Exam ENT Exam: Normal Exam - Neck Exam Neck Exam: Normal Inspection - Respiratory Exam Respiratory Exam: Clear to Ausculation Bilateral. absent: Rales, Rhonchi, Wheezes - Cardiovascular Exam Cardiovascular Exam: REGULAR RHYTHM, RRR, +S1, +S2. absent: Gallop, Rubs - GI/Abdominal Exam GI & Abdominal Exam: Soft, Normal Bowel Sounds - Extremities Exam Extremities Exam: Normal Inspection. absent: Pedal Edema - Back Exam Back Exam: NORMAL INSPECTION - Skin Skin Exam: Normal Color Assessment and Plan - Assessment and Plan (Free Text) Assessment: (1) CVA (cerebral vascular accident) Assessment & Plan: 07/12: Patient based her modified barium swallow test, NG tube removed today, continue PT for now. continue current medical managment, D/C planning most likely she will need acute or sub acute rehab. Neuro consult - Dr. See - help appreciated Patient is on Aspirin, Plavix, and Crestor. She has NG tube in place. MRI of brain without contrast on 07/09 shows: [id number]-xz-afbvy size foci of diffusion restriction at the left brain consistent with acute/ subacute left MCA territory infarct. She is now on theraputic nectar thick liquids but will continue tube feeding. Will need to follow up Neurology consult, help appreciated. Patient had swallow study. Status: Acute (2) New onset a-fib Assessment & Plan: 07/12: No MARÍA ELENA for Dr. Amezquita, continue current medical managment. Previous note Cardiology consult - Dr. Amezquita - help appreciated Patient needs rate control Digoxin 0.5mg IVP once today Digoxin 0.25mg IVP daily Coreg increased to 6.25mg BID from 3.125mg BID Patient will most likely need half-way oral anticoagulation. No anticoagulation until 08/02/[address] See Status: Acute (3) Hypertension Assessment & Plan: Continue Coreg and Zestril and to monitor patient on tele monitor. Status: Acute (4) Prophylactic measure Assessment & Plan: pepcid 20mg HS Status: Acute
[2016-07-12] MEDS ORDERED: Barium Sulfate for Susp 98% w/w 340g Bottle ONE (11:09)
--- NOTE | 2016-07-12 12:31 | RAD ---
PROCEDURE: Modified barium swallow study. HISTORY: dysphagia COMPARISON: None available. TECHNIQUE: Under fluoroscopic guidance, barium meals of various consistency were administered to the patient by the speech pathologist. FINDINGS: No penetration or aspiration was observed during this study. Delayed swallowing was noted. IMPRESSION: No penetration or aspiration observed. Please refer to the detailed report and recommendations of the speech pathologist.
--- NOTE | 2016-07-12 16:23 | CP.PCM.PN ---
Subjective - Date & Time of Evaluation Date of Evaluation: 07/12/16 Time of Evaluation: 10:00 - Subjective Subjective: clinically same Objective - Vital Signs/Intake and Output Vital Signs (last 24 hours): Temp Pulse Resp BP Pulse Ox 98.8 F 83 20 177/77 H 94 L 07/12/16 08:56 07/12/16 08:56 07/12/16 08:56 07/11/16 23:40 07/12/16 08:56 Intake and Output: 07/12/16 07/12/16 06:59 18:59 Intake Total 725 Output Total 550 Balance 175 - Medications Medications: Current Medications Aspirin (Aspirin Chewable) 81 mg PO DAILY [facility] Last Admin: 07/12/16 13:17 Dose: 81 mg Carvedilol (Coreg) 6.25 mg PO BID [facility] Last Admin: 07/12/16 13:16 Dose: 6.25 mg Clopidogrel Bisulfate (Plavix) 75 mg PO DAILY [facility] Last Admin: 07/12/16 13:17 Dose: 75 mg Digoxin (Lanoxin) 0.25 mg PO DAILY@1800 [facility] Last Admin: 07/11/16 17:30 Dose: 0.25 mg Diltiazem HCl (Cardizem) 30 mg PO QID [facility] Last Admin: 07/12/16 14:44 Dose: 30 mg Famotidine (Pepcid) 20 mg PO BID [facility] Last Admin: 07/12/16 13:17 Dose: 20 mg Lisinopril (Zestril) 20 mg PO DAILY [facility] Last Admin: 07/12/16 13:17 Dose: 20 mg Rosuvastatin Calcium (Crestor) 20 mg PO HS [facility] Last Admin: 07/11/16 21:46 Dose: 20 mg - Labs Labs: 07/12/16 06:46 07/12/16 06:46 PT 12.6 SECONDS (9.7-12.2) H 07/06/16 06:11 INR 1.1 07/06/16 06:11 APTT 28 SECONDS (21-34) 07/06/16 06:11 - Constitutional Appears: Well - Head Exam Head Exam: ATRAUMATIC, NORMAL INSPECTION, NORMOCEPHALIC - Eye Exam Eye Exam: EOMI, Normal appearance, PERRL Pupil Exam: NORMAL ACCOMODATION, PERRL - ENT Exam ENT Exam: Mucous Membranes Moist, Normal Exam - Neck Exam Neck Exam: Full ROM, Normal Inspection. absent: Lymphadenopathy - Respiratory Exam Respiratory Exam: Decreased Breath Sounds - Cardiovascular Exam Cardiovascular Exam: REGULAR RHYTHM, +S1, +S2 - GI/Abdominal Exam GI & Abdominal Exam: Soft, Diminished Bowel Sounds - Rectal Exam Rectal Exam: Deferred
[2016-07-12] MEDS: Digoxin 250 mcg (0.25 mg) Tab PO SCH (17:28)
[2016-07-12] MEDS: Nystatin 100,000 Units/ml Oral Susp 5 ml UD PO SCH ×2 (17:29→21:42)
[2016-07-13 07:14] LABS: CHLORIDE 98 mmol/L (98-107); SODIUM 141 mmol/L (132-148)
[2016-07-13 07:15] LABS: POTASSIUM 3.8 mmol/L (3.6-5.2)
[2016-07-13 07:17] LABS: ALB/GLOB RATIO 1.1 (1.0-2.1); ALKALINE PHOSPHATASE 80 U/L (38-126); AST/SGOT 32 U/L (14-36); BILIRUBIN,TOTAL 0.9 mg/dL (0.2-1.3); BLOOD UREA NITROGEN 27 mg/dL (7-17); CARBON DIOXIDE 28 mmol/L (22-30); GFR AFRICAN-AMERICAN > 60; GLUCOSE,RANDOM 134 mg/dL (65-105); PHOSPHOROUS 4.3 mg/dL (2.5-4.5); TOTAL PROTEIN 6.6 g/dL (6.3-8.3)
[2016-07-13 07:18] LABS: ALT/SGPT 43 U/L (9-52); CALCIUM 8.9 mg/dl (8.6-10.4); MAGNESIUM 1.9 mg/dL (1.6-2.3)
[2016-07-13 07:24] LABS: BASO # 0.1 K/uL (0.0-0.2); BASO % 0.5 % (0.0-2.0); EOS # 0.3 K/uL (0.0-0.7); HEMATOCRIT 40.2 % (34.0-47.0); LYMPH # 1.8 K/uL (1.0-4.3); LYMPH % 15.7 % (20.0-40.0); MEAN CORPUSCULAR HEMOGLOBIN 28.3 pg (27.0-31.0); MEAN CORPUSCULAR HGB CONC 32.9 g/dL (33.0-37.0); MEAN PLATELET VOLUME 9.5 fL (7.2-11.7); MONO # 0.9 K/uL (0.0-0.8); MONO % 7.8 % (0.0-10.0); WHITE BLOOD COUNT 11.5 K/uL (4.8-10.8)
[2016-07-13 08:05] VITALS: BP 146/77; TEMP 98.9; O2SAT 96
--- NOTE | 2016-07-13 08:58 | CP.PCM.PN ---
Subjective - Date & Time of Evaluation Date of Evaluation: 07/13/16 Time of Evaluation: 10:00 - Subjective Subjective: Prakash Burns service, Patient is seen and examined in room. She is still non verbal but will follow commands. Family at bedside. Objective - Vital Signs/Intake and Output Vital Signs (last 24 hours): Temp Pulse Resp BP Pulse Ox 98.9 F 80 20 146/77 96 07/13/16 08:04 07/13/16 08:04 07/13/16 08:04 07/13/16 08:04 07/13/16 08:04 Intake and Output: 07/13/16 07/13/16 06:59 18:59 Intake Total 200 Output Total 500 Balance -300 - Medications Medications: Current Medications Aspirin (Aspirin Chewable) 81 mg PO DAILY [facility] Last Admin: 07/12/16 13:17 Dose: 81 mg Carvedilol (Coreg) 6.25 mg PO BID [facility] Last Admin: 07/12/16 17:28 Dose: 6.25 mg Clopidogrel Bisulfate (Plavix) 75 mg PO DAILY [facility] Last Admin: 07/12/16 13:17 Dose: 75 mg Digoxin (Lanoxin) 0.25 mg PO DAILY@1800 [facility] Last Admin: 07/12/16 17:28 Dose: 0.25 mg Diltiazem HCl (Cardizem) 30 mg PO QID [facility] Last Admin: 07/12/16 21:41 Dose: 30 mg Famotidine (Pepcid) 20 mg PO BID [facility] Last Admin: 07/12/16 17:29 Dose: 20 mg Lisinopril (Zestril) 20 mg PO DAILY [facility] Last Admin: 07/12/16 13:17 Dose: 20 mg Nystatin (Nystatin Oral Susp) 5 ml PO QID [facility] Last Admin: 07/12/16 21:42 Dose: 5 ml Rosuvastatin Calcium (Crestor) 20 mg PO HS [facility] Last Admin: 07/12/16 21:41 Dose: 20 mg - Labs Labs: 07/13/16 06:59 07/13/16 06:59 PT 12.6 SECONDS (9.7-12.2) H 07/06/16 06:11 INR 1.1 07/06/16 06:11 APTT 28 SECONDS (21-34) 07/06/16 06:11 - Constitutional Appears: Non-toxic, No Acute Distress, Unkempt - Head Exam Head Exam: ATRAUMATIC, NORMAL INSPECTION, NORMOCEPHALIC - Eye Exam Eye Exam: Normal appearance - ENT Exam ENT Exam: Normal Exam - Respiratory Exam Respiratory Exam: Clear to Ausculation Bilateral. absent: Rhonchi, Wheezes - Cardiovascular Exam Cardiovascular Exam: Irregular Rhythm, +S1, +S2. absent: Gallop, REGULAR RHYTHM , Rubs - GI/Abdominal Exam GI & Abdominal Exam: Soft, Normal Bowel Sounds. absent: Tenderness - Extremities Exam Extremities Exam: Normal Inspection. absent: Pedal Edema - Skin Skin Exam: Normal Color, Warm Assessment and Plan - Assessment and Plan (Free Text) Assessment: (1) CVA (cerebral vascular accident) Assessment & Plan: 07/13: Patient transferred to [facility]. 07/12: Patient based her modified barium swallow test, NG tube removed today, continue PT for now. continue current medical managment, D/C planning most likely she will need acute or sub acute rehab. Neuro consult - Dr. See - help appreciated Patient is on Aspirin, Plavix, and Crestor. She has NG tube in place. MRI of brain without contrast on 07/09 shows: [id number]-ccmbu size foci of diffusion restriction at the left brain consistent with acute/ subacute left MCA territory infarct. She is now on theraputic nectar thick liquids but will continue tube feeding. Will need to follow up Neurology consult, help appreciated. Patient had swallow study. Status: Acute (2) New onset a-fib Assessment & Plan: 07/12: No MARÍA ELENA for Dr. Amezquita, continue current medical managment. Previous note Cardiology consult - Dr. Amezquita - help appreciated Patient needs rate control Digoxin 0.5mg IVP once today Digoxin 0.25mg IVP daily Coreg increased to 6.25mg BID from 3.125mg BID Patient will most likely need group home oral anticoagulation. No anticoagulation until 08/02/[address] See Status: Acute (3) Hypertension Assessment & Plan: Continue Coreg and Zestril and to monitor patient on tele monitor. Status: Acute (4) Prophylactic measure Assessment & Plan: pepcid 20mg HS Status: Acute
[2016-07-13] MEDS: Nystatin 100,000 Units/ml Oral Susp 5 ml UD PO SCH ×3 (10:34→17:39)
[2016-07-13 14:31] VITALS: PULSE 70
--- NOTE | 2016-07-13 17:04 | CP.PCM.PN ---
Subjective - Date & Time of Evaluation Date of Evaluation: 07/13/16 Time of Evaluation: 17:01 - Subjective Subjective: More awke and alert Mumbles sounds still no clear speech RUE 0/5 No edema Objective - Vital Signs/Intake and Output Vital Signs (last 24 hours): Temp Pulse Resp BP Pulse Ox 98.9 F 70 20 146/77 96 07/13/16 08:04 07/13/16 08:20 07/13/16 08:04 07/13/16 08:04 07/13/16 08:04 Intake and Output: 07/13/16 07/13/16 06:59 18:59 Intake Total 200 Output Total 500 Balance -300 - Medications Medications: Current Medications Aspirin (Aspirin Chewable) 81 mg PO DAILY [facility] Last Admin: 07/13/16 10:32 Dose: 81 mg Carvedilol (Coreg) 6.25 mg PO BID [facility] Last Admin: 07/13/16 10:34 Dose: 6.25 mg Clopidogrel Bisulfate (Plavix) 75 mg PO DAILY [facility] Last Admin: 07/13/16 10:36 Dose: 75 mg Digoxin (Lanoxin) 0.25 mg PO DAILY@1800 [facility] Last Admin: 07/12/16 17:28 Dose: 0.25 mg Diltiazem HCl (Cardizem) 30 mg PO QID [facility] Last Admin: 07/13/16 14:15 Dose: 30 mg Famotidine (Pepcid) 20 mg PO BID [facility] Last Admin: 07/13/16 10:35 Dose: 20 mg Lisinopril (Zestril) 20 mg PO DAILY [facility] Last Admin: 07/13/16 10:36 Dose: 20 mg Nystatin (Nystatin Oral Susp) 5 ml PO QID [facility] Last Admin: 07/13/16 13:58 Dose: 5 ml Rosuvastatin Calcium (Crestor) 20 mg PO HS [facility] Last Admin: 07/12/16 21:41 Dose: 20 mg - Labs Labs: 07/13/16 06:59 07/13/16 06:59 PT 12.6 SECONDS (9.7-12.2) H 07/06/16 06:11 INR 1.1 07/06/16 06:11 APTT 28 SECONDS (21-34) 07/06/16 06:11 - Constitutional Appears: Older Than Stated Age, Chronically Ill - Eye Exam Eye Exam: Normal appearance, PERRL - ENT Exam ENT Exam: Mucous Membranes Moist, Normal Oropharynx - Neck Exam Neck Exam: absent: Thyromegaly - Respiratory Exam Respiratory Exam: Clear to Ausculation Bilateral. absent: Rales, Rhonchi, Wheezes - Cardiovascular Exam Cardiovascular Exam: Irregular Rhythm, RRR, +S1, +S2. absent: Murmur - GI/Abdominal Exam GI & Abdominal Exam: Soft. absent: Tenderness - Extremities Exam Extremities Exam: absent: Pedal Edema - Skin Skin Exam: Normal Color, Warm Assessment and Plan - Assessment and Plan (Free Text) Assessment: ACUTE CVA: * Head CT: 07/05/16: Negative * head CT: 07/06/16: Focal left frontal and postero-frontal hypodensity suggesting acute/cubacute infarct * MRI: L. frontal, temporal, pariatal CVA * Carotid: 07/05/16: mild-mod MARY disease * Echo; 07/05/16: LVH, Grade 3 DD, normal LVEF and wall motion, mod AI P. AFIB: Chronic smoker Non-obstructive Carotid disease HTN CAD s/p STENT 2007 Plan: Both coreg and cardizem are low doses * Suggest Use coreg and titrate to control HR and BP * cont Digoxin * Most importantly: Patient needs anticoagulation given AFIB and possibly will need MARÍA ELENA and cardioversion.....I have discussed with Dr. See; given extensive size of CVA risk of Hem conversion is high if NOAC or Heparin at this time: * Per Dr. See Suggest to wait 4 weeks before transitioning to NOAC use. For that reason no MARÍA ELENA planned for now: can consider as outpatient after cleared for AC use. * Cont DAPT for now * MRI noted * PT/REHAB
--- NOTE | 2016-07-13 17:37 | PN ---
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 VITAL SIGNS: Blood pressure 146/77, mean arterial pressure of 100, respiratory rate 16, temperature 98.9, with a pulse rate 70 irregular. The patient neurologically stable in the sense no progression happening from her insult. Further management, which include the patient may need transesophageal echocardiogram to assess her h eart status for her embolic stroke. The further management for her atrial fibrillation is she may need anticoagulation. Because of the large vessel disease I do not advised her to be on anticoagulat ion at this point. The patient can have anticoagulation at least 4 weeks from the date of the stroke . The patient's condition has been discussed with the teacher dancing. Fan See MD cc: [id number] TT: 07/13/2016 17:36:28 Confirmation # [id number] Dictation # [id number]
[2016-07-13] MEDS: Digoxin 250 mcg (0.25 mg) Tab PO SCH (17:39)
[2016-07-13 17:40] VITALS: PULSE 70
--- NOTE | 2016-07-13 18:15 | CP.PCM.PN ---
Subjective - Date & Time of Evaluation Date of Evaluation: 07/13/16 Time of Evaluation: 10:00 - Subjective Subjective: clinically same Objective - Vital Signs/Intake and Output Vital Signs (last 24 hours): Temp Pulse Resp BP Pulse Ox 98.9 F 70 20 146/77 96 07/13/16 08:04 07/13/16 08:20 07/13/16 08:04 07/13/16 08:04 07/13/16 08:04 Intake and Output: 07/13/16 07/13/16 06:59 18:59 Intake Total 200 Output Total 500 Balance -300 - Medications Medications: Current Medications Aspirin (Aspirin Chewable) 81 mg PO DAILY [facility] Last Admin: 07/13/16 10:32 Dose: 81 mg Carvedilol (Coreg) 6.25 mg PO BID [facility] Last Admin: 07/13/16 17:38 Dose: 6.25 mg Clopidogrel Bisulfate (Plavix) 75 mg PO DAILY [facility] Last Admin: 07/13/16 10:36 Dose: 75 mg Digoxin (Lanoxin) 0.25 mg PO DAILY@1800 [facility] Last Admin: 07/13/16 17:39 Dose: 0.25 mg Diltiazem HCl (Cardizem) 30 mg PO QID [facility] Last Admin: 07/13/16 17:38 Dose: 30 mg Famotidine (Pepcid) 20 mg PO BID [facility] Last Admin: 07/13/16 17:40 Dose: 20 mg Lisinopril (Zestril) 20 mg PO DAILY [facility] Last Admin: 07/13/16 10:36 Dose: 20 mg Nystatin (Nystatin Oral Susp) 5 ml PO QID [facility] Last Admin: 07/13/16 17:39 Dose: 5 ml Rosuvastatin Calcium (Crestor) 20 mg PO HS [facility] Last Admin: 07/12/16 21:41 Dose: 20 mg - Labs Labs: 07/13/16 06:59 07/13/16 06:59 PT 12.6 SECONDS (9.7-12.2) H 07/06/16 06:11 INR 1.1 07/06/16 06:11 APTT 28 SECONDS (21-34) 07/06/16 06:11 - Constitutional Appears: Well - Head Exam Head Exam: ATRAUMATIC, NORMAL INSPECTION, NORMOCEPHALIC - Eye Exam Eye Exam: EOMI, Normal appearance, PERRL Pupil Exam: NORMAL ACCOMODATION, PERRL - ENT Exam ENT Exam: Mucous Membranes Moist, Normal Exam - Neck Exam Neck Exam: Full ROM, Normal Inspection. absent: Lymphadenopathy - Respiratory Exam Respiratory Exam: Decreased Breath Sounds - Cardiovascular Exam Cardiovascular Exam: REGULAR RHYTHM, +S1, +S2 - GI/Abdominal Exam GI & Abdominal Exam: Soft, Diminished Bowel Sounds - Rectal Exam Rectal Exam: Deferred
--- NOTE | 2016-07-17 10:50 | CARD ---
APPROVED REPORT EKG Measurement Heart [id number] <Conclusion> Sinus rhythm with premature atrial complexes Possible Left atrial enlargement Left ventricular hypertrophy Nonspecific ST abnormality Abnormal ECG
== END 2016-07-13 20:07 | DRG 65 ==
LOC: C.ER 16:20 → C.9I 18:18 → C.6T 07-09 14:31
PROVIDERS: ADMIT Internal Medicine Nephrology; ATTEND Internal Medicine Nephrology
DX: I63.412 Cerebral infarction due to embolism of left middle cerebral artery (principal); G81.91 Hemiplegia, unspecified affecting right dominant side; J44.1 Chronic obstructive pulmonary disease with (acute) exacerbation; R41.4 Neurologic neglect syndrome; I48.0 Paroxysmal atrial fibrillation; E11.9 Type 2 diabetes mellitus without complications; R13.10 Dysphagia, unspecified; I10 Essential (primary) hypertension; H53.461 Homonymous bilateral field defects, right side; I25.10 Atherosclerotic heart disease of native coronary artery without angina pectoris; J45.909 Unspecified asthma, uncomplicated; R29.810 Facial weakness; I73.9 Peripheral vascular disease, unspecified; F17.200 Nicotine dependence, unspecified, uncomplicated; I69.320 Aphasia following cerebral infarction; I69.391 Dysphagia following cerebral infarction; Z79.01 Long term (current) use of anticoagulants; Z95.5 Presence of coronary angioplasty implant and graft